=== PATIENT | female | born 1985 | race Caucasian/White ===

== ENCOUNTER → 2017-07-03 17:40 | Outpatient (CLI) | payer OTHER, SELFPAY ==
[2017-07-03 20:51] LABS: Chlamydia Trachomatis by PCR Negative (Negative); Neisserai gonorrhoeae by PCR Negative (Negative); Probe Check PASS; Sample Adequacy Control PASS; Specimen Processing Control PASS
== END ==
PROVIDERS: Family Provider Family Medicine; PCP Family Medicine; Visit Provider Obstetrics & Gynecology
DX: Z34.90 Encounter for supervision of normal pregnancy, unspecified, unspecified trimester (principal)
CPT/HCPCS: 87086; 87491; 87591

== ENCOUNTER → 2017-08-03 08:30 | Outpatient (CLI) | payer OTHER, SELFPAY ==
[2017-08-03 10:13] LABS: Absolute Lymphocyte Count 1.29 X10^3/ul (0.83-4.51); Absolute Neutrophil Count 4.7 X10^3/uL (2.0-7.7); Basophil# 0.03 X10^3/uL; Basophil% 0.5 % (0-1); Eosinophil# 0.16 X10^3/uL; Eosinophils% 2.4 % (0-5); Hematocrit 38.4 % (37-47); Hemoglobin 13.1 g/dl (12.0-15.0); Lymphocyte # 1.29 X10^3/ul (4.0); Lymphocyte % 19.7 % (19-41); Mean Corp Hgb Conc 34.1 g/gl (32-36); Mean Corpuscular Hgb 30.2 pg (27.0-32.0); Mean Corpuscular Volume 88.5 fL (81-99); Mean Platelet Vol. 12.5 fl (6.2-12.0); Monocyte# 0.34 X10^3/uL; Monocyte% 5.2 % (0-10); Neutrophil % 71.6 % (47-70); Platelet Count 95 K/mm3 (150-450); RBC Distribution Width CV 12.9 % (11.6-14.6); RBC Distribution Width SD 40.9 fl (35.1-43.9); Red Blood Count 4.34 M/mm3 (4.2-5.4); White Blood Count 6.6 K/mm3 (4.4-11.0)
[2017-08-03 10:17] LABS: POSITIVE COUNT NO; POSITIVE DIFFERENTIAL NO; POSITIVE MORPHOLOGY NO
[2017-08-03 10:46] LABS: Glucose Challenge Gest 1H 50g 80 mg/dL (70-140)
[2017-08-03 12:27] LABS: HIV - WCH Non-Reactive (Nonreactive); Rubella IgG 40.5 IU/mL
[2017-08-04 16:05] LABS: HEPATITIS B SURFACE AG Negative (Negative)
[2017-08-07 02:58] LABS: Rapid Plasmin Reagin (RPR) NONREACTIVE (NONREACTIVE)
== END ==
PROVIDERS: Family Provider Family Medicine; PCP Family Medicine; Visit Provider Obstetrics & Gynecology
DX: Z34.90 Encounter for supervision of normal pregnancy, unspecified, unspecified trimester (principal); Z36.82 Encounter for antenatal screening for nuchal translucency
CPT/HCPCS: 36415; 82950; 85025; 86592; 86703; 86762; 86850; 86900; 87340

== ENCOUNTER → 2017-08-04 12:48 | Outpatient (CLI) | payer OTHER, SELFPAY ==
[2017-08-04 13:28] LABS: Absolute Lymphocyte Count 2.08 X10^3/ul (0.83-4.51); Absolute Neutrophil Count 5.4 X10^3/uL (2.0-7.7); Basophil# 0.02 X10^3/uL; Basophil% 0.2 % (0-1); Eosinophil# 0.07 X10^3/uL; Eosinophils% 0.8 % (0-5); Hematocrit 36.5 % (37-47); Hemoglobin 12.6 g/dl (12.0-15.0); Lymphocyte # 2.08 X10^3/ul (4.0); Lymphocyte % 25.2 % (19-41); Mean Corp Hgb Conc 34.5 g/gl (32-36); Mean Corpuscular Hgb 30.5 pg (27.0-32.0); Mean Corpuscular Volume 88.4 fL (81-99); Mean Platelet Vol. 12.2 fl (6.2-12.0); Monocyte# 0.64 X10^3/uL; Monocyte% 7.7 % (0-10); Neutrophil # 5.43 X10^3/uL (2.7-7.7); Neutrophil % 65.7 % (47-70); Platelet Count 165 K/mm3 (150-450); RBC Distribution Width CV 12.9 % (11.6-14.6); RBC Distribution Width SD 40.5 fl (35.1-43.9); Red Blood Count 4.13 M/mm3 (4.2-5.4); White Blood Count 8.3 K/mm3 (4.4-11.0)
[2017-08-04 13:29] LABS: POSITIVE COUNT NO; POSITIVE DIFFERENTIAL NO; POSITIVE MORPHOLOGY NO
== END ==
PROVIDERS: Family Provider Family Medicine; PCP Family Medicine; Visit Provider Obstetrics & Gynecology
DX: O99.119 Other diseases of the blood and blood-forming organs and certain disorders involving the immune mechanism complicating pregnancy, unspecified trimester (principal); D69.6 Thrombocytopenia, unspecified; Z3A.00 Weeks of gestation of pregnancy not specified
CPT/HCPCS: 36415; 85025

== ENCOUNTER → 2017-08-24 09:57 | Outpatient (CLI) | payer OTHER, SELFPAY | PROVIDERS: Family Provider Family Medicine; PCP Family Medicine; Visit Provider Obstetrics & Gynecology Maternal & Fetal Medicine | DX: Z36.82 Encounter for antenatal screening for nuchal translucency (principal) | CPT/HCPCS: 36415 ==

== ENCOUNTER → 2017-09-11 15:50 | Outpatient (CLI) | payer OTHER, SELFPAY ==
--- NOTE | 2017-09-11 15:50 | US_ITS ---
STUDY: SECOND AND THIRD TRIMESTER OBSTETRICAL ULTRASOUND REASON FOR EXAM: Female, 32 years old. , assessment LMP: April 30, 2018 TECHNIQUE: Transabdominal imaging of the pelvis was performed using real-time ultrasound. PRIOR ULTRASOUND: None. FINDINGS: There is a single intrauterine fetus. The fetus is in a breech presentation. There is demonstrated cardiac activity with a heart rate of 143 bpm. There is a normal amniotic fluid volume. The placenta is anterior in location and is not low lying. There are Grade 0 placental changes. The cervix measures 3.9 cm in length. The bilateral adnexal regions show no significant abnormalities. BIOMETRY: BPD: 4.45 cm: 19 weeks, 4 days HC: 16.07 cm: 19 weeks, 0 days AC: 13.75 cm: 19 weeks, 2 days FL: 2.92 cm: 19 weeks, 0 days CI: 81% FL/BPD: 66% FL/HC: FL/AC: 21% HC/AC: 1.17 age by current US: 19 weeks, 2 days. LINA by current US: February 03, 2018. Estimated weight: 273 grams, +/- 40 grams, 42 %. age by prior US: weeks, days. LINA by prior US: . Age by LMP: 19 weeks, 1 days. LINA by LMP: February 04, 2018. ANATOMY: Gender: Male Cranium: Normal lateral ventricles. Normal choroid plexus. Normal cerebellum. Normal cisterna magna. Normal face, nose and lips. Chest: Normal 4-chamber heart. Abdomen/Pelvis: Normal diaphragm. Normal stomach. Normal abdominal wall. Normal cord insertion. Normal 3 vessel cord. Normal kidneys. Normal bladder. Spine: Normal cervical spine. Normal thoracic spine. Normal lumbar spine. Extremities: Normal bilateral upper extremities. Normal bilateral lower extremities. US/OB Anatomy Scan IMPRESSION: There is a viable intrauterine with estimated gestational age of 19 weeks 2 days by the current ultrasound. No anomalies are seen. The fetus is currently breech. Electronically Signed: Ban Smith MD at 2:19 EDT Tel Direct: [phone], Service support ,
== END ==
PROVIDERS: Family Provider Family Medicine; PCP Family Medicine; Visit Provider Nurse Practitioner Women's Health
DX: Z34.90 Encounter for supervision of normal pregnancy, unspecified, unspecified trimester (principal)
CPT/HCPCS: 76805

== ENCOUNTER → 2017-11-13 07:52 | Outpatient (CLI) | payer OTHER, SELFPAY ==
[2017-11-13 09:23] LABS: Absolute Lymphocyte Count 1.39 X10^3/ul (0.83-4.51); Absolute Neutrophil Count 5.9 X10^3/uL (2.0-7.7); Basophil# 0.01 X10^3/uL; Basophil% 0.1 % (0-1); Eosinophil# 0.04 X10^3/uL; Eosinophils% 0.5 % (0-5); Hematocrit 35.6 % (37-47); Lymphocyte # 1.39 X10^3/ul (4.0); Lymphocyte % 17.8 % (19-41); Mean Corp Hgb Conc 33.7 g/gl (32-36); Mean Corpuscular Hgb 30.7 pg (27.0-32.0); Mean Platelet Vol. 11.6 fl (6.2-12.0); Monocyte# 0.44 X10^3/uL; Monocyte% 5.6 % (0-10); Neutrophil # 5.91 X10^3/uL (2.7-7.7); Neutrophil % 75.6 % (47-70); Platelet Count 136 K/mm3 (150-450); RBC Distribution Width CV 13.2 % (11.6-14.6); RBC Distribution Width SD 43.9 fl (35.1-43.9); Red Blood Count 3.91 M/mm3 (4.2-5.4); White Blood Count 7.8 K/mm3 (4.4-11.0)
[2017-11-13 09:25] LABS: POSITIVE COUNT NO; POSITIVE DIFFERENTIAL NO; POSITIVE MORPHOLOGY NO
[2017-11-13 09:53] LABS: Glucose Challenge Gest 1H 50g 137 mg/dL (70-140)
== END ==
PROVIDERS: Family Provider Family Medicine; PCP Family Medicine; Visit Provider Obstetrics & Gynecology
DX: Z34.90 Encounter for supervision of normal pregnancy, unspecified, unspecified trimester (principal)
CPT/HCPCS: 36415; 82950; 85025; 86850; 86900

== ENCOUNTER → 2017-11-19 06:56 | Outpatient (CLI) | payer OTHER, SELFPAY ==
[2017-11-19 07:49] LABS: Glucose GTT-Gestation. Fasting 98 mg/dL (<105)
[2017-11-19 09:42] LABS: Glucose GTT-Gestational 1 Hr 161 mg/dL (<190)
[2017-11-19 09:52] LABS: Glucose GTT-Gestational 2 Hr 91 mg/dL (<165)
[2017-11-19 11:39] LABS: Glucose GTT-Gestational 3 Hr 65 L (<145)
== END ==
PROVIDERS: Family Provider Family Medicine; PCP Family Medicine; Visit Provider Obstetrics & Gynecology
DX: R73.02 Impaired glucose tolerance (oral) (principal)
CPT/HCPCS: 36415; 82951; 82952

== ENCOUNTER → 2017-12-23 15:42 | Outpatient (CLI) | payer OTHER, SELFPAY ==
[2017-12-23 17:26] LABS: Absolute Lymphocyte Count 1.84 X10^3/ul (0.83-4.51); Absolute Neutrophil Count 6.6 X10^3/uL (2.0-7.7); Basophil# 0.01 X10^3/uL; Basophil% 0.1 % (0-1); Eosinophil# 0.06 X10^3/uL; Eosinophils% 0.6 % (0-5); Hematocrit 35.6 % (37-47); Hemoglobin 12.2 g/dl (12.0-15.0); Lymphocyte # 1.84 X10^3/ul (4.0); Lymphocyte % 19.9 % (19-41); Mean Corp Hgb Conc 34.3 g/gl (32-36); Mean Corpuscular Hgb 31.2 pg (27.0-32.0); Mean Platelet Vol. 12.3 fl (6.2-12.0); Monocyte# 0.72 X10^3/uL; Monocyte% 7.8 % (0-10); Neutrophil # 6.58 X10^3/uL (2.7-7.7); Neutrophil % 71.2 % (47-70); Platelet Count 157 K/mm3 (150-450); RBC Distribution Width CV 13.3 % (11.6-14.6); RBC Distribution Width SD 43.6 fl (35.1-43.9); Red Blood Count 3.91 M/mm3 (4.2-5.4); White Blood Count 9.3 K/mm3 (4.4-11.0)
[2017-12-23 17:51] LABS: Differential Comment SCANNED; Differential Indicated SCAN CRITERIA MET; POSITIVE COUNT NO; POSITIVE DIFFERENTIAL NO; POSITIVE MORPHOLOGY YES
== END ==
PROVIDERS: Family Provider Family Medicine; PCP Family Medicine; Visit Provider Nurse Practitioner Women's Health
DX: O99.113 Other diseases of the blood and blood-forming organs and certain disorders involving the immune mechanism complicating pregnancy, third trimester (principal); D69.6 Thrombocytopenia, unspecified; Z3A.00 Weeks of gestation of pregnancy not specified
CPT/HCPCS: 36415; 85025

== ENCOUNTER → 2018-01-07 16:59 | Outpatient (CLI) | payer OTHER, SELFPAY ==
[2018-01-07 18:36] LABS: Free T3 2.4 pg/mL (2.18-3.98); T4 Free Direct 0.92 ng/dL (0.76-1.46); Thyroid Stim Hormone (TSH) 1.44 uIU/mL (0.358-3.74)
[2018-01-07 20:22] LABS: Group B Strep DNA By PCR Negative (Negative); Internal Control PASS; Probe Check PASS; Specimen Processing Control PASS
== END ==
PROVIDERS: Family Provider Family Medicine; PCP Family Medicine; Visit Provider Obstetrics & Gynecology
DX: O99.113 Other diseases of the blood and blood-forming organs and certain disorders involving the immune mechanism complicating pregnancy, third trimester (principal); D69.6 Thrombocytopenia, unspecified; E01.0 Iodine-deficiency related diffuse (endemic) goiter; Z3A.00 Weeks of gestation of pregnancy not specified; Z34.83 Encounter for supervision of other normal pregnancy, third trimester
CPT/HCPCS: 36415; 84439; 84443; 84481; 87081; 87653

== ENCOUNTER → 2018-01-12 10:55 | Outpatient (CLI) | payer OTHER, SELFPAY | PROVIDERS: Family Provider Family Medicine; PCP Family Medicine; Visit Provider Obstetrics & Gynecology | DX: O26.849 Uterine size-date discrepancy, unspecified trimester (principal); Z3A.00 Weeks of gestation of pregnancy not specified | CPT/HCPCS: 76816 ==

== ENCOUNTER → 2018-01-19 07:56 | Outpatient (CLI) | payer OTHER, SELFPAY | PROVIDERS: Family Provider Family Medicine; PCP Family Medicine; Visit Provider Obstetrics & Gynecology | DX: O99.283 Endocrine, nutritional and metabolic diseases complicating pregnancy, third trimester (principal); E01.0 Iodine-deficiency related diffuse (endemic) goiter; O99.113 Other diseases of the blood and blood-forming organs and certain disorders involving the immune mechanism complicating pregnancy, third trimester; D69.6 Thrombocytopenia, unspecified; Z3A.00 Weeks of gestation of pregnancy not specified | CPT/HCPCS: 76536 ==

== ENCOUNTER 2018-01-30 00:24 | Inpatient (IN) | payer OTHER, SELFPAY ==
[2018-01-30 01:02] VITALS: BMI 38.7
[2018-01-30] MEDS: Lactated Ringers 1,000 ML 50 ML IV ×3 (01:10→07:11)
[2018-01-30 01:27] LABS: Hemoglobin 12.6 g/dl (12.0-15.0); Mean Corpuscular Hgb 31.7 pg (27.0-32.0); Mean Corpuscular Volume 90.7 fL (81-99); Mean Platelet Vol. 12.3 fl (6.2-12.0); Platelet Count 124 K/mm3 (150-450); RBC Distribution Width CV 12.6 % (11.6-14.6); RBC Distribution Width SD 41.2 fl (35.1-43.9); Red Blood Count 3.97 M/mm3 (4.2-5.4); White Blood Count 10.8 K/mm3 (4.4-11.0)
[2018-01-30 01:31] LABS: Scan Indicated on CBC? Y/N NO
[2018-01-30] MEDS: fentaNYL-bupivacaine (epidural) 100 ML BAG EPIDURAL ×2 (02:55→07:33)
[2018-01-30] MEDS: Ondansetron 4 MG/2 ML Vial IV (03:12)
--- NOTE | 2018-01-30 04:47 | PCM.HP.OB ---
- Problem List (1) Active labor at term Status: Acute (2) Thyromegaly Status: Acute Comment: noticed at 36 week visit, ordered labs and imaging (3) IUD contraception Status: Acute (4) Benign gestational thrombocytopenia in third trimester Status: Acute Comment: cbc monthly, give steroid pack if under 100: 12/23/17 157 (5) Abnormal GTT (glucose tolerance test) Status: Acute Comment: 3 hour gtt normal (6) screening encounter Status: Acute Comment: nt normal (7) Rh negative status during Status: Acute Qualifiers: Comment: rhogam PRN and at 28 weeks (8) Supervision of normal Status: Acute Qualifiers: Comment: PRR LINA 02/04/18 boy PC Abdirashid Marco (9) Depression Status: Acute Qualifiers: Comment: celexa History Date of Admission: 01/30/18 Final LINA: 02/04/18 Gestational age: 39 Weeks and 2 Days History of this : This is a 33 year-old, at 39 weeks gestational age presents IAL. she denies any vb or lof admits good fm co regular ctx. she has had an uncomplicated Medical History: Medical History (Last Reviewed 01/29/18 @ 15:26 by Nathalia Pisano) Abnormal Pap smear of cervix R87.619 Depression F32.9 Surgical History: Surgical History (Last Reviewed 01/29/18 @ 15:26 by Nathalia Pisano) H/O LEEP Z98.890 Allergies No Known Allergies Allergy (Verified 01/29/18 15:26) Home Medications: Home Medications vitamin,calcium,jiuirdyw-lzft-imdsf acid tablet 1 tab PO QDAY MDD one 07/03/17 sulfur-sod sulf-sod thios 400 mg-mthflate 500 mcg/0.4 gram oral powder 07/03/17 citalopram 20 mg tablet 20 mg PO DAILY 09/24/17 Smoking Status: Never smoker Alcohol: None Number of Fetus(es): 1 Heart Tracin moderate variability reactive no decels cat I tracing TOCO Analysis: q3 History Past Pregnancies: Past Pregnancies Pregancy History 2 Elective abortions Hx Para 1 Spontaneous abortions Hx # Term Pregnancies Ectopic pregnancies Hx # Pregnancies Multiple births # of living children Past Pregnancies Del. Date Name GA/Weeks Outcome Route Bth Weight Infant Gen Labor Lgth Anesthesia Del Locatn Provider FOB 02/17/16 Abdirashid 39 live - full term vacuum 8lbs 2 ounces Male epidural [facility] Clifford Delivery Date: 02/17/16 On 12/23/17 @ 15:29 Nathalia Pisano pushed 3 hours Labs: Mom's Problem List Problem Status Onset Code Active labor at term Acute Mom's Labs & Results 01/30/18 01/30/18 01:10 01:10 WBC 10.8 RBC 3.97 L Hgb 12.6 Hct 36.0 L MCV 90.7 MCH 31.7 MCHC 35.0 RDW 12.6 RDW Differential 41.2 Plt Count 124 L MPV 12.3 H Blood Type A NEGATIVE Antibody Screen NEGATIVE Course Did the patient receive Yes care? Labs Blood Type: A RH: NEGATIVE RPR/VDRL/Syphilis Nonreactive Rubella status Immune HbSAg Negative Date Done: 08/03/17 Chlamydia Negative Gonorrhea Negative HIV/AIDS Non-Reactive Group B Strep: Negative Current Obstetrical History Gestational Diabetes No Incompetent Cervix No Infertility No IUGR No Macrosomia No Hypertension/Pre-eclampsia No Placenta Previa/Abruption No PTL/PROM No Uterine anomaly No Oligohydramnios No Polyhydramnios No Multiple gestation No Past Medical History Asthma No Diabetes No Hypertension No Heart disease No Mitral valve prolapse No Neurologic/Seizure disorder/ No Migraines Kidney disease No Liver disease No Varicosities No Clotting disorders/Hx of DVT No Thyroid Dysfunction Yes: enlarged Other medical diseases No Psychiatric disorders Yes: depression Major trauma No Abnormal PAP smear Yes: LEEP procedure 2012 Sleep apnea No Mammogram in the last 2 years No Social History Marital Status: Alleged father Marco Sky Hx Smoking Yes Smoking Status Never smoker Expected Delivery Method: Spontaneous Vaginal Review of Systems Constitutional: Denies: Fever, Malaise Eyes: Denies: Blurred vision, Vision Change HEENT: Denies: Head Aches, Visual Changes Cardiovascular: Denies: Chest Pain, Palpitations Respiratory: Denies: Cough, Shortness of Breath, Wheezing Gastrointestinal: Denies: Abdominal Pain, Diarrhea, Nausea, Vomiting Genitourinary: Denies: Dysuria, Hematuria Musculoskeletal: Denies: Joint Pain, Muscle pain Skin: Denies: Lesions, Rash Neurological: Denies: Blurred vision, Focal weakness, Headaches Psychiatric: Denies: Anxiety, Depression Endocrine: Denies: Heat/ Cold Intolerance Hematologic/ Lymphatic: Denies: Easy Bruising, Easy Bleeding Physical Exam General: Alert, Cooperative, No apparent distress HEENT: Atraumatic, Normocephalic. Negative for: Thyromegaly, Lymphadenopathy Cardiovascular: Regular rate Lungs: Normal air movement Abdomen: Soft, Non Tender, Gravid Neurological: Deep Tendon Reflexes 2+/4 and Symmetrical, Neuro grossly intact. 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 Negative for: Vulvar lesions Estimated gestational size: Appropriate for gestational size Presentation: Cephalic Cervix Dilation (cm): 5 Station: -1 Effacement (%): 80 Assessment/Plan All Active Problems (Last Reviewed 01/29/18 @ 15:26 by Nathalia Pisano) Active labor at term (Acute) Thyromegaly (Acute) IUD contraception (Acute) Benign gestational thrombocytopenia in third trimester (Acute) Abnormal GTT (glucose tolerance test) (Acute) screening encounter (Acute) Rh negative status during (Acute) Supervision of normal (Acute) Depression (Acute) This is a 33 year-old, , at 39 weeks gestational age presents IAL Patient presents IAL, plan expectant management for , pitocin/AROM clear fluid. Pain management: epidural GBS negative Management of any complications: none I have reviewed the [facility] and made any clinically relevant updates.
--- NOTE | 2018-01-30 04:51 | HP.PCM_ITS ---
- Problem List (1) Active labor at term Status: Acute (2) Thyromegaly Status: Acute Comment: noticed at 36 week visit, ordered labs and imaging (3) IUD contraception Status: Acute (4) Benign gestational thrombocytopenia in third trimester Status: Acute Comment: cbc monthly, give steroid pack if under 100: 12/23/17 157 (5) Abnormal GTT (glucose tolerance test) Status: Acute Comment: 3 hour gtt normal (6) screening encounter Status: Acute Comment: nt normal (7) Rh negative status during Status: Acute Qualifiers: Comment: rhogam PRN and at 28 weeks (8) Supervision of normal Status: Acute Qualifiers: Comment: PRR LINA 02/04/18 boy PC Abdirashid Marco (9) Depression Status: Acute Qualifiers: Comment: celexa History Date of Admission: 01/30/18 Final LINA: 02/04/18 Gestational age: 39 Weeks and 2 Days History of this : This is a 33 year-old, at 39 weeks gestational age presents IAL. she denies any vb or lof admits good fm co regular ctx. she has had an uncomplicated Medical History: Medical History (Last Reviewed 01/29/18 @ 15:26 by Nathalia Pisano) Abnormal Pap smear of cervix R87.619 Depression F32.9 Surgical History: Surgical History (Last Reviewed 01/29/18 @ 15:26 by Nathalia Pisano) H/O LEEP Z98.890 Allergies No Known Allergies Allergy (Verified 01/29/18 15:26) Home Medications: Home Medications vitamin,calcium,fadeuwcb-mops-qpgyj acid tablet 1 tab PO QDAY MDD one 07/03/17 sulfur-sod sulf-sod thios 400 mg-mthflate 500 mcg/0.4 gram oral powder citalopram 20 mg tablet 20 mg PO DAILY 09/24/17 Smoking Status: Never smoker Alcohol: None Number of Fetus(es): 1 Heart Tracin moderate variability reactive no decels cat I tracing TOCO Analysis: q3 History Past Pregnancies: Past Pregnancies Pregancy History 2 Elective abortions Hx Para 1 Spontaneous abortions Hx # Term Pregnancies Ectopic pregnancies Hx # Pregnancies Multiple births # of living children Past Pregnancies Del. Date Name GA/Weeks Outcome Route Bth Weight Gen Labor Lgth Anesthesia Del Locatn Provider FOB 02/17/16 Abdirashid 39 live - full term vacuum 8lbs 2 ounces Male epidural [facility] Clifford Delivery Date: 02/17/16 On 12/23/17 @ 15:29 Nathalia Pisano pushed 3 hours Labs: Mom's Problem List Problem Status Onset Code Active labor at term Acute Mom's Labs & Results 01/30/18 01/30/18 01:10 01:10 WBC 10.8 RBC 3.97 L Hgb 12.6 Hct 36.0 L MCV 90.7 MCH 31.7 MCHC 35.0 RDW 12.6 RDW Differential 41.2 Plt Count 124 L MPV 12.3 H Blood Type A NEGATIVE Antibody Screen NEGATIVE Course Did the patient receive Yes care? Labs Blood Type: A RH: NEGATIVE RPR/VDRL/Syphilis Nonreactive Rubella status Immune HbSAg Negative Date Done: 08/03/17 Chlamydia Negative Gonorrhea Negative HIV/AIDS Non-Reactive Group B Strep: Negative Current Obstetrical History Gestational Diabetes No Incompetent Cervix No Infertility No IUGR No Macrosomia No Hypertension/Pre-eclampsia No Placenta Previa/Abruption No PTL/PROM No Uterine anomaly No Oligohydramnios No Polyhydramnios No Multiple gestation No Past Medical History Asthma No Diabetes No Hypertension No Heart disease No Mitral valve prolapse No Neurologic/Seizure disorder/ No Migraines Kidney disease No Liver disease No Varicosities No Clotting disorders/Hx of DVT No Thyroid Dysfunction Yes: enlarged Other medical diseases No Psychiatric disorders Yes: depression Major trauma No Abnormal PAP smear Yes: LEEP procedure 2012 Sleep apnea No Mammogram in the last 2 years No Social History Marital Status: Alleged father Marco Sky Hx Smoking Yes Smoking Status Never smoker Expected Infant Delivery Method: Spontaneous Vaginal Review of Systems Constitutional: Denies: Fever, Malaise Eyes: Denies: Blurred vision, Vision Change HEENT: Denies: Head Aches, Visual Changes Cardiovascular: Denies: Chest Pain, Palpitations Respiratory: Denies: Cough, Shortness of Breath, Wheezing Gastrointestinal: Denies: Abdominal Pain, Diarrhea, Nausea, Vomiting Genitourinary: Denies: Dysuria, Hematuria Musculoskeletal: Denies: Joint Pain, Muscle pain Skin: Denies: Lesions, Rash Neurological: Denies: Blurred vision, Focal weakness, Headaches Psychiatric: Denies: Anxiety, Depression Endocrine: Denies: Heat/ Cold Intolerance Hematologic/ Lymphatic: Denies: Easy Bruising, Easy Bleeding Physical Exam General: Alert, Cooperative, No apparent distress HEENT: Atraumatic, Normocephalic. Negative for: Thyromegaly, Lymphadenopathy Cardiovascular: Regular rate Lungs: Normal air movement Abdomen: Soft, Non Tender, Gravid Neurological: Deep Tendon Reflexes 2+/4 and Symmetrical, Neuro grossly intact. 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 Negative for: Vulvar lesions Estimated gestational size: Appropriate for gestational size Presentation: Cephalic Cervix Dilation (cm): 5 Station: -1 Effacement (%): 80 Assessment/Plan All Active Problems (Last Reviewed 01/29/18 @ 15:26 by Nathalia Pisano) Active labor at term (Acute) Thyromegaly (Acute) IUD contraception (Acute) Benign gestational thrombocytopenia in third trimester (Acute) Abnormal GTT (glucose tolerance test) (Acute) screening encounter (Acute) Rh negative status during (Acute) Supervision of normal (Acute) Depression (Acute) This is a 33 year-old, , at 39 weeks gestational age presents IAL Patient presents IAL, plan expectant management for , pitocin/AROM clear fluid. Pain management: epidural GBS negative Management of any complications: none I have reviewed the [facility] and made any clinically relevant updates.
[2018-01-30] MEDS: Acetaminophen 325 MG Tablet PO (06:40)
--- NOTE | 2018-01-30 08:15 | PCM.PN.BLA ---
Progress Note fht 130s moderate variability reactive no decels. cat I tracing. reassuring. pushing now doing well.
[2018-01-30] MEDS: Oxytocin 30 units/NS 500 ml 30 UNITS/500 ML IV.SOLN 334 UNITS IV (09:02)
--- NOTE | 2018-01-30 09:13 | PCM.OB.VAG ---
- Problem List (1) Active labor at term Status: Acute (2) Thyromegaly Status: Acute Comment: noticed at 36 week visit, ordered labs and imaging (3) IUD contraception Status: Acute (4) Benign gestational thrombocytopenia in third trimester Status: Acute Comment: cbc monthly, give steroid pack if under 100: 12/23/17 157 (5) Abnormal GTT (glucose tolerance test) Status: Acute Comment: 3 hour gtt normal (6) screening encounter Status: Acute Comment: nt normal (7) Rh negative status during Status: Acute Qualifiers: Comment: rhogam PRN and at 28 weeks (8) Supervision of normal Status: Acute Qualifiers: Comment: PRR LINA 02/04/18 boy PC Abdirashid Marco (9) Depression Status: Acute Qualifiers: Comment: celexa Vaginal Delivery Maternal Presentation: Active Labor 33-year-old at 39 weeks 2 days presents in active labor. Amniotic Membrane Rupture Type: Artificial Amniotic Fluid Description: Clear Final LINA: 02/04/18 Gestational age: 39 Weeks and 2 Days Date of Procedure: 01/30/18 Pre-Operative Diagnosis: In active labor Post-Operative Diagnosis: Same Surgery/ Procedure Performed: Spontaneous Vaginal Delivery Type of Anesthesia: Epidural Description of Procedure: Patient began pushing and delivered the head in the TAMMI presentation. The head was delivered atraumatically. The anterior and posterior shoulders delivered without complication followed by the rest of the infant and the was placed on the maternal abdomen. Delayed cord clamping was employed for approximately 60 seconds. Cord was clamped and cut and gentle traction was applied to the cord and the placenta delivered spontaneously immediately following it was noted to be intact with three-vessel cord. The perineum and vagina were inspected and noted to have a second-degree perineal laceration that was repaired in the usual fashion with 3-0 Vicryl Rapide. EBL was 500 cc. Patient and infant tolerated delivery well. Presentation: TAMMI Placental Delivery Description: Spontaneous Placenta Disposition: [facility] Cord Vessel Description: 3 Vessels
[2018-01-30] MEDS: Oxytocin 30 units/NS 500 ml 30 UNITS/500 ML IV.SOLN 167 UNITS IV (09:32)
[2018-01-30] MEDS: Acetaminophen 500 MG Tablet 1000 MG PO (11:25)
[2018-01-30 11:45] VITALS: BP 121/82; PULSE 90; RESP 17; TEMP 36
[2018-01-30] MEDS: Prenatal Vits Tablet 1 TABLET PO (15:15)
[2018-01-30 15:16] VITALS: BP 125/73; PULSE 78; RESP 14; TEMP 36.4
[2018-01-30] MEDS: Ketorolac 10 MG Tablet PO (15:24)
[2018-01-30 19:40] VITALS: BP 140/78; PULSE 78; RESP 18; TEMP 36.6; O2SAT 98
[2018-01-30] MEDS: Citalopram 20 MG Tablet 30 MG PO (21:54)
[2018-01-30 23:50] VITALS: BP 136/80; PULSE 88; RESP 18; TEMP 36.7
[2018-01-31] MEDS: Ketorolac 10 MG Tablet PO ×3 (03:41→22:24)
[2018-01-31 03:43] VITALS: BP 139/73; PULSE 80; RESP 16; TEMP 36.6
[2018-01-31] MEDS: Senna/Docusate Sodium 1 Tablet PO (04:07)
[2018-01-31 08:15] VITALS: BP 143/71; PULSE 92; RESP 18; TEMP 36.8; O2SAT 96
[2018-01-31] MEDS: Acetaminophen 500 MG Tablet 1000 MG PO (08:38)
[2018-01-31] MEDS: Prenatal Vits Tablet 1 TABLET PO (13:10)
[2018-01-31 14:57] VITALS: BP 140/80; PULSE 93; RESP 17; TEMP 36.3; O2SAT 96
[2018-01-31 20:05] VITALS: BP 142/66; PULSE 86; RESP 16; TEMP 36.2
[2018-01-31] MEDS: Citalopram 20 MG Tablet 30 MG PO (22:24)
--- NOTE | 2018-02-01 01:44 | PCM.PN.OB ---
Patient Problems: Active and Suspected Problems (Last Reviewed 01/29/18 @ 15:26 by Nathalia Pisano) Active labor at term (Acute) Subjective: late entry- patient seen 01/31/18 at 9 am doing well no complaints pain controlled no CP SOB N V ambulating well tolerating po lochia moderate, having nipple pains with some blisters - Physical Exam General: Alert HEENT: Atraumatic Abdomen: Soft, Non Tender Vital Signs Temp Pulse Resp BP Pulse Ox 97.1 F L 86 16 142/66 H 96 01/31/18 20:05 01/31/18 20:05 01/31/18 20:05 01/31/18 20:05 01/31/18 14:57 Oxygen Delivery Method Room Air Weight: 262 lb 5.601 oz Body Mass Index (BMI) 38.7 Intake and Output for Last 24 Hours 01/30/18 01/31/18 02/01/18 23:59 23:59 23:59 Intake Total 2100 / 2100 Output Total 1700 / 1700 Balance 400 / 400 Medical Necessity - Tobacco Use Smoking Status: Never smoker Assessment/Plan All Active Problems (Last Reviewed 01/29/18 @ 15:26 by Nathalia Pisano) Active labor at term (Acute) Thyromegaly (Acute) IUD contraception (Acute) Benign gestational thrombocytopenia in third trimester (Acute) Abnormal GTT (glucose tolerance test) (Acute) screening encounter (Acute) Rh negative status during (Acute) Supervision of normal (Acute) Depression (Acute) s/p PPD # 1 1. routine post delivery care 2. breast feeding- support given 3. rh negative 4. rubella immune
[2018-02-01 03:00] VITALS: BP 131/86; PULSE 91; RESP 16; TEMP 37.1
[2018-02-01 07:54] VITALS: BP 129/79; PULSE 87; RESP 20; TEMP 36.5
[2018-02-01] MEDS: Ketorolac 10 MG Tablet PO (08:01)
[2018-02-01] MEDS: Senna/Docusate Sodium 1 Tablet PO (08:01)
[2018-02-01] MEDS: Prenatal Vits Tablet 1 TABLET PO (08:01)
--- NOTE | 2018-02-01 11:00 | CASEMGMT ---
Social Work Brief Assessment completed. Refer documentation below for further details. Date of Referral/Notification: 01/31/2018 Time of Referral: 1401 Referred By: Dr. Yashira Roldan Reason for Referral: maternal history of depression Date of Intervention: 02/01/2018 Time of Intervention: 1100 Informant: Medical record and patient/mother of baby (MOB) History: IGOR is 33 year old female, G2, P1 to 2 after delivering Azeem Kin on 01-30-18. MOB is to Marco Sky. MOB denies any abuse or safety concerns in the home. MOB reports older child is Abdirashid Sky, born 02-17-16. 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 MOB reports to have babysitting in place when MOB returns to work and plans to have Abdirashid remain in care with chute builder, to keep up a routine during MOBs maternity leave. MOB reports long history of depression, and after of Abdirashid experienced both depression and anxiety, which MOB reports started even while in the hospital. MOB reports was not direct in communicating with others initially as to how MOB was feeling. MOB denies that had any thoughts of suicide during that time or during this . MOB reports to have too much to live for (as looking at and smiling at the baby). MOB reports tried to be proactive during this , as did not want to be in the same place as was after Abdirashid. In trying to be proactive, MOB did start with counseling at [facility], seeing a therapist named Ban. Assessment: MOB reports to have needed supplies for baby and that father of baby will be off work for a week to help. MOB reports to have a good support system in the area. MOB able to identify the importance of self-care and in relation to maternal mental health needs. MOB reports guided imagery is a technique that has worked on with therapist, for coping when feeling down or stressed out. MOB report to know that can get back in to see Ban as another alternative if depressive and anxiety symptoms arise. MOB reports to feel more positive and overall better as compared to at this time after Abdirashid was born. Talked with MOB about possibly getting into see Ban in about a month or so, just for a touch base and check in on how things are going. MOB reports this may be a good idea and will likely make self an appointment. Talked with MOB about support group for mothers who have depression and anxiety, as well as getting fresh air and movement each day. Supportive encouragement and reflection offered to MOB. MOB voiced thanks for being able to talk things through and normalizing/validation MOBs experiences. MOB held baby throughout social work visit, gentle, attentive, and appropriate. No concerns voiced by staff about mother/child interactions either. Plan: MOB and baby to home today. depression packet given including some local and online resources for support of maternal mental health. No further needs requested or indicated. -SANJEEV Terrell, PARTS FABRICATOR
--- NOTE | 2018-02-01 12:07 | PCM.DCVAG ---
Discharge Diet: No Restrictions Discharge Activity: Return to Normal Activity, May not drive while taking narcotic pain medications., May Shower May resume sexual activity in: 4-6 weeks Call your doctor if your incision/area has: Continuous Slow Oozing, Sudden Increased Bleeding, Increased Pain/ Swelling, Increased Redness, Foul Smelling Discharge Instructions: Care After Circumcision Additional Instructions: If you experience any of the following, contact your healthcare provider. Bleeding that soaks a pad every hour for 2 hours Fever 100.4 or higher Unrelieved incision or abdominal pain Swelling, redness, discharge or bleeding from your incision or episiotomy site Your incision begins to separate Problems urinating (including inability to urinate or burning while urinating). Visual changes Severe headache Flu-like symptoms Pain or redness in one of both of your breasts Pain, warmth, tenderness or swelling in your legs, especially the calf area Frequent nausea and vomiting Symptoms of depression or anxiety If you experience any of the following, call 911 or go to the nearest Emergency Room. Chest pain Problems breathing Seizure activity Partial or complete paralysis of a body part, slurred speech, weakness or drooping of the face, or a sudden inability to walk or hold your balance Allergies/Adverse Reactions: Allergies No Known Allergies Allergy (Verified 01/29/18 15:26) Medications to take at Discharge vitamin,calcium,flcgsxgl-dmuh-vtfsk acid tablet 1 tab PO QDAY MDD one 07/03/17 sulfur-sod sulf-sod thios 400 mg-mthflate 500 mcg/0.4 gram oral powder 07/03/17 citalopram 20 mg tablet 30 mg PO DAILY 09/24/17 Naproxen [Naprosyn] 250 - 500 mg PO Q8H PRN PRN #30 tab 02/01/18 The following prescriptions were given: Naproxen [Naprosyn] 250 - 500 mg PO Q8H PRN PRN #30 tab PRN Reason: MILD PAIN Please Follow Up With: Mariama Patel MD - [phone] When: Call to make an appointment with your doctor in 6 weeks. If you had elevated Blood pressure or 4th degree laceration you will need to be seen in 2 weeks. Primary Care Physician: Federico Mcnamara MD [Primary Care Provider] - Test Results: Test results from this visit will be discussed in further detail at your follow-up appointment, if applicable.
--- NOTE | 2018-02-01 12:08 | PCM.PN.OB ---
Patient Problems: Active and Suspected Problems (Last Reviewed 01/29/18 @ 15:26 by Nathalia Pisano) Active labor at term (Acute) Subjective: doing well no complaints pain controlled no CP SOB N V ambulating well tolerating po lochia moderate, difficulties - Physical Exam General: Alert, Oriented x3 Vital Signs Temp Pulse Resp BP Pulse Ox 97.7 F L 87 20 H 129/79 H 96 02/01/18 07:54 02/01/18 07:54 02/01/18 07:54 02/01/18 07:54 01/31/18 14:57 Oxygen Delivery Method Room Air Weight: 262 lb 5.601 oz Body Mass Index (BMI) 38.7 Intake and Output for Last 24 Hours 01/30/18 01/31/18 02/01/18 23:59 23:59 23:59 Intake Total 2100 / 2100 Output Total 1700 / 1700 Balance 400 / 400 Medical Necessity - Tobacco Use Smoking Status: Never smoker Assessment/Plan All Active Problems (Last Reviewed 01/29/18 @ 15:26 by Nathalia Pisano) Active labor at term (Acute) Thyromegaly (Acute) IUD contraception (Acute) Benign gestational thrombocytopenia in third trimester (Acute) Abnormal GTT (glucose tolerance test) (Acute) screening encounter (Acute) Rh negative status during (Acute) Supervision of normal (Acute) Depression (Acute) s/p PPD # 2 1. routine post delivery care 2. breast feeding- support given 3. rh negative 4. rubella immune dc home
== END 2018-02-01 12:30 | disposition home or self-care (01) | DRG 775 ==
PROVIDERS: Admitting Provider Obstetrics & Gynecology; Family Provider Family Medicine; PCP Family Medicine; Visit Provider Obstetrics & Gynecology
DX: O70.1 Second degree perineal laceration during delivery (principal); Z37.0 Single live birth; O36.0120 Maternal care for anti-D [Rh] antibodies, second trimester, not applicable or unspecified; O99.12 Other diseases of the blood and blood-forming organs and certain disorders involving the immune mechanism complicating childbirth; D69.6 Thrombocytopenia, unspecified; O99.284 Endocrine, nutritional and metabolic diseases complicating childbirth; E01.0 Iodine-deficiency related diffuse (endemic) goiter; O99.344 Other mental disorders complicating childbirth; F32.9 Major depressive disorder, single episode, unspecified; Z3A.39 39 weeks gestation of pregnancy
CPT/HCPCS: 59025; 59050; 85027; 85461; 86850; 86900; 90384; 99218; J7120; G0378; J2405; J2790

== ENCOUNTER → 2018-07-07 07:02 | Outpatient (CLI) | payer OTHER, SELFPAY ==
[2018-07-07 10:36] LABS: Absolute Lymphocyte Count 1.93 X10^3/ul (0.83-4.51); Absolute Neutrophil Count 3.3 X10^3/uL (2.0-7.7); Basophil# 0.03 X10^3/uL; Basophil% 0.5 % (0-1); Eosinophil# 0.28 X10^3/uL; Eosinophils% 4.6 % (0-5); Hematocrit 41.1 % (37-47); Hemoglobin 13.9 g/dl (12.0-15.0); Lymphocyte # 1.93 X10^3/ul (4.0); Lymphocyte % 31.5 % (19-41); Mean Corp Hgb Conc 33.8 g/gl (32-36); Mean Corpuscular Hgb 29.8 pg (27.0-32.0); Mean Corpuscular Volume 88.2 fL (81-99); Mean Platelet Vol. 12.4 fl (6.2-12.0); Monocyte# 0.54 X10^3/uL; Monocyte% 8.8 % (0-10); Neutrophil # 3.32 X10^3/uL (2.7-7.7); Neutrophil % 54.1 % (47-70); POSITIVE COUNT NO; POSITIVE DIFFERENTIAL NO; POSITIVE MORPHOLOGY NO; Platelet Count 168 K/mm3 (150-450); RBC Distribution Width CV 12.5 % (11.6-14.6); RBC Distribution Width SD 39.8 fl (35.1-43.9); Red Blood Count 4.66 M/mm3 (4.2-5.4); White Blood Count 6.1 K/mm3 (4.4-11.0)
[2018-07-07 10:55] LABS: Anion Gap 8 (5-15); BUN 16 mg/dL (7-18); BUN/Creat Ratio 21.6 RATIO (10-20); Calcium,Total 8.6 mg/dL (8.5-10.1); Chloride 109 mmol/L (98-107); Creatinine, Serum 0.74 mg/dL (0.55-1.02); EST Glomerular Filtration Rate 96 mL/min (>60); Est Glom Filt Rate - Afr Amer 116 mL/min (>60); Glucose 80 mg/dL (74-106); Potassium 3.9 mmol/L (3.5-5.1); Sodium Level 142 mmol/L (136-145); Thyroid Stim Hormone (TSH) 1.32 uIU/mL (0.358-3.74)
== END ==
PROVIDERS: Family Provider Family Medicine; PCP Family Medicine; Referring Provider Family Medicine; Visit Provider Family Medicine
DX: R20.2 Paresthesia of skin (principal)
CPT/HCPCS: 36415; 80048; 82306; 84443; 85025

== ENCOUNTER → 2018-07-21 11:04 | Outpatient (CLI) | payer OTHER, SELFPAY ==
--- NOTE | 2018-07-21 11:14 | MRI_ITS ---
STUDY: MRI BRAIN WITH AND WITHOUT CONTRAST REASON FOR EXAM: Female, 33 years old. Demyelinating disease, migraines TECHNIQUE: Standardized multiplanar fat and water weighted pulse sequences were obtained. Gadavist 10 IV was administered for the contrast portion of the examination. COMPARISON: None. FINDINGS: Normal size of the ventricles and extra-axial spaces for the patient's age. Normal white matter tracts of the supratentorial brain. Normal bilateral basal ganglia. Normal thalami. There is no extra-axial fluid accumulation. Normal flow voids within the major intracranial circulation suggesting patency by spin echo criteria. Normal venous enhancement. There is no enhancing intra-axial or extra-axial abnormality. Normal sella turcica, pituitary gland, infundibular stalk, optic chiasm and hypothalamus. Normal tectal plate and pineal gland. Normal midbrain, lorena and medulla. Normal cerebellum. Normal basal cisterns. Normal bilateral temporal bones. Normal bilateral internal auditory canals. No demonstrated orbital abnormality, within the constraints of a routine brain study. Normal visualized paranasal sinuses. Normal calvarium and skull base. Normal visualized soft tissue structures. Normal visualized upper cervical spine. MRI/Brain W/WO Contrast IMPRESSION: No demyelinating lesions are seen. No evidence of infarct, hemorrhage, mass, or abnormal enhancement. Electronically Signed: Lawson Kirk MD at 12:43 EST Tel , Service support ,
== END ==
PROVIDERS: Family Provider Family Medicine; PCP Family Medicine; Referring Provider Family Medicine; Visit Provider Family Medicine
DX: R20.2 Paresthesia of skin (principal)
CPT/HCPCS: 70553; A9585

== ENCOUNTER → 2019-11-14 09:48 | Outpatient (CLI) | payer OTHER, SELFPAY ==
[2019-04-23 13:31] VITALS: BMI 37.7
[2019-11-14 12:23] LABS: Absolute Lymphocyte Count 2.37 X10^3/uL (0.83-4.51); Absolute Neutrophil Count 4.1 X10^3/uL (2.0-7.7); Basophil# 0.04 X10^3/uL; Basophil% 0.6 % (0-1); Eosinophils% 1.4 % (0-5); Hematocrit 43.5 % (37-47); Hemoglobin 14.4 g/dL (12.0-15.0); Lymphocyte # 2.37 X10^3/ul (4.0); Lymphocyte % 32.6 % (19-41); Mean Corp Hgb Conc 33.1 g/dL (32-36); Mean Corpuscular Hgb 30.1 pg (27.0-32.0); Mean Platelet Vol. 12.1 fl (6.2-12.0); Monocyte# 0.63 X10^3/uL; Monocyte% 8.7 % (0-10); NRBC Flagged by Analyzer 0 % (0-5); Neutrophil # 4.07 X10^3/uL (2.7-7.7); Neutrophil % 55.9 % (47-70); Platelet Count 205 K/mm3 (150-450); RBC Distribution Width SD 39.8 fl (35.1-43.9); Red Blood Count 4.78 M/mm3 (4.2-5.4); White Blood Count 7.3 K/mm3 (4.4-11.0)
[2019-11-14 12:49] LABS: ALB/GLOB Ratio 1.2 RATIO (0.9-2.4); AST(SGOT) 14 U/L (15-37); Alanine Aminotransfer ALT/SGPT 32 U/L (13-56); Albumin, Serum 4.3 g/dL (3.2-5.0); Alkaline Phosphatase 56 U/L (45-117); Anion Gap 8 (5-15); BUN 13 mg/dL (7-18); BUN/Creat Ratio 17.9 RATIO (10-20); Chloride 103 mmol/L (98-107); Cholesterol 177 mg/dL (200); Creatinine, Serum 0.73 mg/dL (0.55-1.02); EST Glomerular Filtration Rate 97 mL/min (>60); Est Glom Filt Rate - Afr Amer 118 mL/min (>60); Globulin 3.5 g/dL (2.2-4.2); Glucose 91 mg/dL (74-106); High Density Lipoprotein 38 mg/dL; Potassium 3.8 mmol/L (3.5-5.1); Protein, Total 7.8 g/dL (6.4-8.2); Sodium Level 139 mmol/L (136-145); T4 Free Direct 1.01 ng/dL (0.76-1.46); Thyroid Stim Hormone (TSH) 1.45 uIU/mL (0.358-3.74); Triglycerides 134 mg/dL; Very Low Density Lipoprotein 27 mg/dL (5-40)
[2019-11-15 16:36] LABS: Anti-Thyroglobulin AB < 1.0 IU/mL (0.0-0.9); Thyroglobulin, Serum Qt. 12.8 ng/mL (1.5-38.5); Thyroid Peroxidase AB < 9 IU/mL (0-34)
== END ==
PROVIDERS: PCP Family Medicine; Referring Provider Family Medicine; Visit Provider Family Medicine
DX: E01.0 Iodine-deficiency related diffuse (endemic) goiter (principal); E66.9 Obesity, unspecified
CPT/HCPCS: 36415; 80053; 80061; 84432; 84439; 84443; 85025; 86376; 86800

== ENCOUNTER → 2019-12-01 16:18 | Outpatient (CLI) | payer OTHER, SELFPAY ==
[2019-04-23 13:31] VITALS: BMI 37.7
--- NOTE | 2019-12-01 16:23 | RAD_ITS ---
STUDY: X-RAY - SOFT TISSUE NECK REASON FOR EXAM: Female, 34 years old. Thyroid goiter TECHNIQUE: 2 view(s) of the neck were obtained. COMPARISON: None. FINDINGS: Normal visualized nasopharynx, oropharynx, hypopharynx. Normal epiglottis. Normal visualized subglottic tracheal air column. There are no radiodense foreign bodies. The visualized soft tissues are unremarkable. RAD/Neck for Soft Tissue IMPRESSION: Normal x-ray soft tissue neck. Electronically Signed: Homer Pepe, at 17:22 EDT Tel , Service support ,
== END ==
PROVIDERS: PCP Family Medicine; Referring Provider Internal Medicine Pulmonary Disease; Visit Provider Internal Medicine Pulmonary Disease
DX: E04.9 Nontoxic goiter, unspecified (principal)
CPT/HCPCS: 70360

== ENCOUNTER → 2019-12-13 09:24 | Outpatient (CLI) | payer OTHER, SELFPAY ==
[2019-04-23 13:31] VITALS: BMI 37.7
--- NOTE | 2019-12-13 09:28 | US_ITS ---
STUDY: THYROID ULTRASOUND REASON FOR EXAM: Female, 34 years old. THYROMEGALY TECHNIQUE: Ultrasound evaluation of the thyroid was performed with real-time and static chiu-scale imaging. COMPARISON: 01/19/2018 FINDINGS: RIGHT LOBE: The right lobe of the thyroid gland measures 6.4 x 2.6 x 2.1 cm. There is a homogeneous echotexture. There are no demonstrated solid, cystic or complex lesions. LEFT LOBE: The left lobe of the thyroid gland measures 5.6 x 2.5 x 1.6 cm. There is a homogeneous echotexture. There are no demonstrated solid, cystic or complex lesions. ISTHMUS: The isthmus measures 6 mm. The regional lymph nodes are normal. US/Thyroid IMPRESSION: Enlarged homogeneous thyroid without discrete nodule or hyperemia. Electronically Signed: Jame Bal MD at 10:07 EDT , Service support ,
== END ==
PROVIDERS: PCP Family Medicine; Referring Provider Family Medicine; Visit Provider Family Medicine
DX: E01.0 Iodine-deficiency related diffuse (endemic) goiter (principal)
CPT/HCPCS: 76536

== ENCOUNTER → 2019-12-20 13:33 | Outpatient (CLI) | payer OTHER, SELFPAY ==
[2019-04-23 13:31] VITALS: BMI 37.7
== END ==
PROVIDERS: PCP Family Medicine; Visit Provider Family Medicine Hospice and Palliative Medicine
DX: Z11.59 Encounter for screening for other viral diseases (principal)
CPT/HCPCS: 87635; 94799; C9803; U0003

== ENCOUNTER → 2020-04-02 15:58 | Outpatient (CLI) | payer OTHER, SELFPAY ==
[2019-04-23 13:31] VITALS: BMI 37.7
--- NOTE | 2020-04-02 16:00 | BI_ITS ---
MAMMOGRAPHY - BILATERAL SCREENING REASON FOR EXAM: Female, 35 years old. Routine annual screening examination. PERTINENT HISTORY: Grandmother with breast cancer. Six-month history of a right breast lump. TECHNIQUE: Digital bilateral breast lora (3D mammographic acquisition) in the CC and MLO projections. 2-D mediolateral oblique (MLO) and craniocaudad (CC) views of both breasts were obtained. CAD: Full Field Digital Mammography with Computer Added Detection was performed. COMPARISON: Comparison is made with prior study dated 04/29/2017. FINDINGS: Breast Composition: The breasts are heterogeneously dense, which may obscure small masses. There are no dominant masses or suspicious calcifications. Stable benign-appearing bilateral axillary lymph nodes. No other significant abnormalities are identified. There has been no significant change since the prior study. BI/SCREEN MAMM (CAD) W/LOAR BILAT IMPRESSION: Stable bilateral screening mammogram. Yearly follow-up mammogram recommended. (A) ASSESSMENT CATEGORY: BIRADS Category 2: Benign. A letter regarding these results will be sent to the patient by the facility within 30 days. Approximately 10% of breast cancers are not detected by mammography. A normal mammogram should not delay biopsy of a clinically suspicious abnormality. [id number] Electronically Signed: Jamaal Medina, at 8:02 EST , Service support ,
== END ==
PROVIDERS: PCP Family Medicine; Referring Provider Family Medicine; Visit Provider Family Medicine
DX: Z12.31 Encounter for screening mammogram for malignant neoplasm of breast (principal)
CPT/HCPCS: 77063; 77067

== ENCOUNTER → 2020-12-24 17:07 | Outpatient (CLI) | payer OTHER, SELFPAY ==
[2020-12-24 15:22] VITALS: BMI 37.7
[2020-12-27 16:43] LABS: HPV APTIMA, High Risk Negative (Negative)
== END ==
PROVIDERS: PCP Family Medicine; Referring Provider Obstetrics & Gynecology; Visit Provider Obstetrics & Gynecology
DX: Z12.4 Encounter for screening for malignant neoplasm of cervix (principal)
CPT/HCPCS: 87624; 88175; G0145

== ENCOUNTER → 2020-12-28 07:59 | Outpatient (CLI) | payer OTHER, SELFPAY ==
[2020-12-24 15:22] VITALS: BMI 37.7
[2020-12-28 09:06] LABS: NATERA MAILED SPECIMEN
[2020-12-28 10:37] LABS: Vitamin D,25 Hydroxy 40.6 ng/mL
[2020-12-28 10:44] LABS: Cholesterol 172 mg/dL (200); Glucose 112 mg/dL (74-106); High Density Lipoprotein 36 mg/dL; Triglycerides 97 mg/dL; Very Low Density Lipoprotein 19 mg/dL (5-40)
== END ==
PROVIDERS: PCP Family Medicine; Referring Provider Obstetrics & Gynecology; Visit Provider Obstetrics & Gynecology
DX: Z01.411 Encounter for gynecological examination (general) (routine) with abnormal findings (principal)
CPT/HCPCS: 36415; 80061; 82306; 82947

== ENCOUNTER → 2021-01-25 15:14 | Outpatient (CLI) | payer OTHER, SELFPAY ==
[2021-01-25 17:54] LABS: ALB/GLOB Ratio 1.1 RATIO (0.9-2.4); AST(SGOT) 14 U/L (15-37); Alanine Aminotransfer ALT/SGPT 34 U/L (13-56); Albumin, Serum 3.8 g/dL (3.2-5.0); Alkaline Phosphatase 52 U/L (45-117); Anion Gap 5 (5-15); BUN 15 mg/dL (7-18); BUN/Creat Ratio 18.8 RATIO (10-20); Calcium,Total 8.9 mg/dL (8.5-10.1); Chloride 107 mmol/L (98-107); EST Glomerular Filtration Rate 87 mL/min (>60); Est Glom Filt Rate - Afr Amer 106 mL/min (>60); Globulin 3.5 g/dL (2.2-4.2); Glucose 101 mg/dL (74-106); Potassium 3.7 mmol/L (3.5-5.1); Protein, Total 7.3 g/dL (6.4-8.2); Sodium Level 138 mmol/L (136-145)
[2021-01-25 17:55] LABS: Hemoglobin A1c 5.2 % (3.8-5.6)
== END ==
PROVIDERS: PCP Family Medicine; Referring Provider Family Medicine; Visit Provider Family Medicine
DX: R73.09 Other abnormal glucose (principal)
CPT/HCPCS: 36415; 80053; 83036

== ENCOUNTER 2021-02-19 14:30 | Outpatient (RCR) | payer OTHER, SELFPAY | END 2021-02-21 23:59 | LOC: NS 14:30 | PROVIDERS: PCP Family Medicine; Visit Provider Family Medicine | DX: Z71.3 Dietary counseling and surveillance (principal); E66.9 Obesity, unspecified; Z68.41 Body mass index [BMI] 40.0-44.9, adult | CPT/HCPCS: 97802 ==

== ENCOUNTER 2021-03-04 02:10 | Emergency (ER) | payer OTHER, SELFPAY ==
[2021-03-04 02:11] VITALS: BP 176/96; PULSE 74; RESP 16; TEMP 36.8; O2SAT 98; BMI 42.7
--- NOTE | 2021-03-04 02:25 | EKG12_ITS ---
Test Reason : CP Blood Pressure : / mmHG Vent. Rate : 077 BPM Atrial Rate : 077 BPM P-R Int : 172 ms QRS Dur : 090 ms QT Int : 408 ms P-R-T Axes : 006 058 014 degrees QTc Int : 461 ms Normal sinus rhythm Normal ECG Confirmed by DAISY WEBSTER, CYRUS ([id number]), newspaper editor managing QUAN PERALES ([id number]) on 03/04/2021 1:11:06 PM Referred By: PL Confirmed By:CYRUS VILLA MD
--- NOTE | 2021-03-04 02:26 | EDS_ITS ---
HPI History of Present Illness Chief Complaint: Chest Pain Informant: patient Narrative Narrative: Patient presents with some chest tightness. She states she woke up about an hour and a half ago. She had tingling of her fingertips and face. She felt a little tightness in her chest. Not really short of breath. She states she first thought maybe she was nauseated but actually did not feel nauseated. She had no vomiting. No diarrhea. She does have a history of sleep apnea but was using her CPAP machine. She also has a history of anxiety. Nothing specifically made the symptoms better or worse. [facility] Medical History (Updated 03/04/21 @ 04:[address] Doyle Manjarrez MD) Abnormal Pap smear of cervix Depression Home Medications citalopram 40 mg tablet 40 mg PO DAILY #90 tab 04/05/18 [Rx Last Taken Unknown] cetirizine 10 mg disintegrating tablet 10 mg PO DAILY 12/24/20 [History Last Taken Unknown] Allergy/AdvReac Type Severity Reaction Status Date / Time No Known Allergies Allergy Verified 03/04/21 02:16 Family History Mother Hypertension Father Cancer prostate Grandmother Cancer thyroid Heart disease Breast cancer Grandfather Cancer lung colon Heart disease Unknown Breast cancer, Onset Age: 27 Surgical History H/O LEEP Social History Smoking Status: Never smoker alcohol intake: current substance use type: does not use caffeine: No what type of physical activity do you participate in: none seatbelt use: always do you feel safe at home: Yes additional social history: [employer] Patient works at [employer] [facility] ED Constitutional Constitutional ED: Denies fever(s) or subjective Eyes Eyes: Denies blurry vision or change in vision ENT ENT ED: Denies rhinorrhea or sore throat Cardiovascular Cardiovascular: Reports chest pain, palpitations and racing heartbeat Respiratory/Chest Respiratory/Chest: Denies cough or dyspnea Gastrointestinal Gastrointestinal: Denies diarrhea, nausea or vomiting Genitourinary Genitourinary ED: Denies dysuria Musculoskeletal Musculoskeletal: Reports other Details: She did have tightness of her chest. It did radiate up toward the left shoulder area. ; Denies back pain or neck pain Integumentary Reports other Details: No diaphoresis. ; Denies rash Neurologic Neurologic: Reports paresthesias; Denies headache(s) or weakness Psychiatric Psychiatric: Reports anxiety and depression Endocrine Endocrinology: Denies polydipsia or polyuria Hematologic/Lymphatic Hematologic/Lymphatic: Denies easy bleeding or easy bruising Allergic/Immunologic Allergic/Immunologic ED: Denies urticaria EXAM Physical Exam Const Vital Signs: 03/04/21 02:11 03/04/21 02:33 03/04/21 04:34 Temperature 98.2 F Temperature Source Temporal Pulse Rate 74 76 Respiratory Rate 16 18 Blood Pressure 176/96 H 135/83 H Blood Pressure Mean 122 100 Pulse Ox 98 98 95 Oxygen Delivery Method Room Air Room Air Room Air Positive well nourished, well developed and obese General Appearance ED: well developed and NAD Nutritional Appearance: obese HEENT Reports moist mucous membranes Eyes General Eye ED: Negative for pale conjunctiva or scleral icterus Neck no JVD General: Negative for tenderness Chest Wall inspection of chest normal and palpation of chest normal Resp normal respiratory effort and clear to auscultation bilaterally Effort and Inspection: respiratory distress Auscultation: Negative for rales or rhonchi Cardio regular rate and regular rhythm GI normal to inspection, nondistended, normoactive bowel sounds, soft to palpation and non-tender Back/Spine no CVA tenderness Extremity normal to inspection General Extremety ED: Negative for edema, pulses abnormal or tenderness General Extremity: Negative for edema or pulses abnormal Neuro Sensorium / Orientation: awake and alert Psych mental status grossly normal Heart Score History: Slightly/Non-Suspicious ECG: Normal Age: </= 45 years Risk Factors: 1 or 2 Risk Factors Troponin: </= Normal Limit Score: 1 MDM MDM MDM Narrative Medical decision making narrative: Patient's blood work shows no marked abnormalities. Troponin is negative. X-ray shows no acute process. The patient now recalls that her 3-year-old was messing with her CPAP machine the other day. She is not sure if any of the dials were changed. But this certainly could have started the symptoms that she had. She will check this. If she has any recurrent symptoms she will return here. I recommend she follow- up with her physician. Her symptoms did have some features of sleep apnea as well as panic/anxiety. Her cardiac work-up is negative at this time. I think it is okay that we get her home. Lab Data Attestation: I reviewed the patient's lab results. Labs: Laboratory Results - last 24 hr 03/04/21 03/04/21 02:30 02:30 WBC 7.8 RBC 4.52 Hgb 13.9 Hct 41.6 MCV 92.0 MCH 30.8 MCHC 33.4 RDW Std Deviation 40.6 RDW Coeff of [place] 12.0 Plt Count 179 MPV 12.3 H Immature Gran % (Auto) 0.800 Neut % (Auto) 54.6 Lymph % (Auto) 33.6 [place] % (Auto) 8.1 Eos % (Auto) 2.3 Baso % (Auto) 0.6 Absolute Neuts (auto) 4.3 Absolute Lymphs (auto) 2.62 Nucleated RBC % 0 Sodium 141 Potassium 3.7 Chloride 107 Carbon Dioxide 26.0 Anion Gap 8 BUN 11 Creatinine 0.72 Estim Creat Clear Calc 113.97 Est GFR (MDRD) Af Amer 119 Est GFR (MDRD) Non-Af 99 BUN/Creatinine Ratio 15.4 Glucose 107 H Calcium 8.6 Troponin I High Sens 5 Radiography Diagnostic Testing: Clinical Impression(s) from Imaging Studies Chest X-Ray 03/04/21 03:07 IMPRESSION: No radiographic evidence of acute cardiopulmonary disease. at 0352 Reported and signed by: Ankit Soria MD Electronically Signed: Ankit Soria MD at 3:51 EDT Tel , Service support , EKG Initial EKG: Comments: EKG done for chest pain read by me shows normal sinus rhythm with overall rate of 77. No ectopy. No acute ST elevation or depression. TN interval, QRS duration and QTc normal. Discharge Plan Triage Chief Complaint: Chest Pain ED Provider: Doyle Manjarrez Dx/Rx/DC Orders Clinical Impression: Paresthesias, Chest tightness, Anxiety Instructions: ED Anxiety Reaction, ED Chest Pain, Uncertain Cause Prescriptions: No Action Zyrtec 10 mg tablet,disintegrating 10 mg PO DAILY RF: 0 citalopram 40 mg tablet 40 mg PO DAILY Qty: 90 RF: 3 Primary Care Provider: Federico Carias Referrals: Federico Carias MD [Primary Care Provider] - 3-5 Days Disposition Disposition: Home, Self Care
[2021-03-04 02:33] VITALS: O2SAT 98
[2021-03-04] MEDS: Aspirin 81 MG TAB.CHEW 324 MG PO (02:36)
[2021-03-04 03:05] LABS: Absolute Lymphocyte Count 2.62 X10^3/uL (0.83-4.51); Absolute Neutrophil Count 4.3 X10^3/uL (2.0-7.7); Basophil# 0.05 X10^3/uL; Basophil% 0.6 % (0-1); Eosinophil# 0.18 X10^3/uL; Eosinophils% 2.3 % (0-5); Hematocrit 41.6 % (37-47); Hemoglobin 13.9 g/dL (12.0-15.0); Lymphocyte # 2.62 X10^3/ul (0.83-4.51); Lymphocyte % 33.6 % (19-41); Mean Corp Hgb Conc 33.4 g/dL (32-36); Mean Corpuscular Hgb 30.8 pg (27.0-32.0); Mean Platelet Vol. 12.3 fl (6.2-12.0); Monocyte# 0.63 X10^3/uL; Monocyte% 8.1 % (0-10); NRBC Flagged by Analyzer 0 % (0-5); Neutrophil # 4.25 X10^3/uL (2.7-7.7); Neutrophil % 54.6 % (47-70); Platelet Count 179 K/mm3 (150-450); RBC Distribution Width SD 40.6 fl (35.1-43.9); Red Blood Count 4.52 M/mm3 (4.2-5.4); White Blood Count 7.8 K/mm3 (4.4-11.0)
--- NOTE | 2021-03-04 03:07 | RAD_ITS ---
EXAM: XR CHEST, 1 VIEW : 1985 CLINICAL INDICATION: chest pain TECHNIQUE: Frontal view of the chest. This report was created using [employer] report generation technology. COMPARISON: None. FINDINGS: LUNGS AND PLEURAL SPACES: Unremarkable. No consolidation or edema. No pneumothorax. No effusion. HEART: Unremarkable. Cardiac silhouette not enlarged. MEDIASTINUM: Central airways and mediastinal contour are unremarkable. BONES/JOINTS: Unremarkable. SOFT TISSUES: Unremarkable. RAD/Chest 1 View (Portable) IMPRESSION: No radiographic evidence of acute cardiopulmonary disease. at 0352 Reported and signed by: Ankit Soria MD Electronically Signed: Ankit Soria MD at 3:51 EDT Tel , Service support ,
[2021-03-04 03:51] LABS: Anion Gap 8 (5-15); BUN 11 mg/dL (7-18); BUN/Creat Ratio 15.4 RATIO (10-20); Calcium,Total 8.6 mg/dL (8.5-10.1); Chloride 107 mmol/L (98-107); Creatinine, Serum 0.72 mg/dL (0.55-1.02); EST Glomerular Filtration Rate 99 mL/min (>60); Est Glom Filt Rate - Afr Amer 119 mL/min (>60); Estimated Creatinine Clearance 113.97 ml/min; Glucose 107 mg/dL (74-106); Potassium 3.7 mmol/L (3.5-5.1); Sodium Level 141 mmol/L (136-145); Troponin-I HS 5 pg/mL (3.0-54.0)
[2021-03-04 04:34] VITALS: BP 135/83; PULSE 76; RESP 18; O2SAT 95
[2021-03-04 04:48] VITALS: BP 137/81; PULSE 75; RESP 18; O2SAT 96
== END 2021-03-04 04:52 | disposition home or self-care (01) ==
PROVIDERS: Emergency Provider Emergency Medicine; PCP Family Medicine
DX: R20.2 Paresthesia of skin (principal); R07.89 Other chest pain; F41.9 Anxiety disorder, unspecified; F32.9 Major depressive disorder, single episode, unspecified; G47.30 Sleep apnea, unspecified; E66.9 Obesity, unspecified; Z79.899 Other long term (current) drug therapy
CPT/HCPCS: 71045; 80048; 84484; 85025; 93005; 99285; A4216

== ENCOUNTER 2021-03-05 16:00 | Outpatient (RCR) | payer OTHER, SELFPAY | END 2021-03-24 23:59 | LOC: NS 16:00 | PROVIDERS: PCP Family Medicine; Visit Provider Family Medicine | DX: Z71.3 Dietary counseling and surveillance (principal); E66.9 Obesity, unspecified; Z68.41 Body mass index [BMI] 40.0-44.9, adult | CPT/HCPCS: 97802 ==

== ENCOUNTER 2021-07-09 14:16 | Outpatient (CLI) | payer OTHER, SELFPAY ==
[2021-07-09 16:09] LABS: Absolute Lymphocyte Count 2.35 X10^3/uL (0.83-4.51); Basophil# 0.04 X10^3/uL; Basophil% 0.5 % (0-1); Eosinophil# 0.11 X10^3/uL; Eosinophils% 1.3 % (0-5); Hemoglobin 13.6 g/dL (12.0-15.0); Lymphocyte # 2.35 X10^3/ul (0.83-4.51); Lymphocyte % 28.7 % (19-41); Mean Corpuscular Hgb 30.3 pg (27.0-32.0); Mean Corpuscular Volume 89.1 fL (81-99); Mean Platelet Vol. 12.1 fl (6.2-12.0); Monocyte% 7.3 % (0-10); NRBC Flagged by Analyzer 0 % (0-5); Neutrophil # 5.02 X10^3/uL (2.7-7.7); Neutrophil % 61.5 % (47-70); Platelet Count 206 K/mm3 (150-450); RBC Distribution Width CV 11.9 % (11.6-14.6); RBC Distribution Width SD 39.1 fl (35.1-43.9); Red Blood Count 4.49 M/mm3 (4.2-5.4); White Blood Count 8.2 K/mm3 (4.4-11.0)
[2021-07-09 16:34] LABS: T4 Free Direct 0.87 ng/dL (0.76-1.46); Thyroid Stim Hormone (TSH) 1.04 uIU/mL (0.358-3.74)
[2021-07-12 08:10] LABS: Thyroid Stim Immunoglob <0.10 IU/L (0.00-0.55)
[2021-07-12 13:17] LABS: Anti-Thyroglobulin AB < 1.0 IU/mL (0.0-0.9); Thyroglobulin, Serum Qt. 14.2 ng/mL (1.5-38.5); Thyroid Peroxidase AB < 8 IU/mL (0-34)
== END 2021-07-09 23:59 | disposition home or self-care (01) ==
LOC: MTLAB 14:20
PROVIDERS: PCP Family Medicine; Referring Provider Family Medicine; Visit Provider Family Medicine
DX: E01.0 Iodine-deficiency related diffuse (endemic) goiter (principal)
CPT/HCPCS: 84432; 84439; 84443; 84445; 85025; 86376; 86800

== ENCOUNTER 2021-07-15 15:19 | Outpatient (CLI) | payer OTHER, SELFPAY ==
--- NOTE | 2021-07-15 15:28 | US_ITS ---
STUDY: THYROID ULTRASOUND REASON FOR EXAM: Female, 36 years old. Thyromegaly. TECHNIQUE: Ultrasound evaluation of the thyroid was performed with real-time and static chiu-scale imaging. COMPARISON: None. FINDINGS: RIGHT LOBE: The right lobe of the thyroid gland measures 5.8 x 2.5 x 1.9 cm. There is a heterogeneous echotexture. Long the posterior aspect of the lower pole of the right thyroid there is a 1.5 x 1.2 x 1.2 cm isoechoic mass. It is uncertain whether this represents a parathyroid gland or a nodule within the thyroid. Normal vascularity. LEFT LOBE: The left lobe of the thyroid gland measures 5.2 x 2.3 x 1.7 cm. There is a heterogeneous echotexture. There are no demonstrated solid, cystic or complex lesions. Normal vascularity. ISTHMUS: The isthmus measures 0.4 cm. Tiny cyst measuring 2 mm in the left isthmus. The regional lymph nodes are normal. US/Thyroid IMPRESSION: 1. Parathyroid gland versus nodule in the right thyroid. If this is a thyroid nodule would have a TIRADS categorization of TR 3. This nodule is mildly suspicious. Recommend follow-up thyroid ultrasounds at 1, 3 and 5 years. 2. Mildly prominent thyroid without other abnormality. Electronically Signed: Lemuel Ayala DO at 23:51 EST ,
== END 2021-07-15 23:59 | disposition home or self-care (01) ==
LOC: US 15:23
PROVIDERS: PCP Family Medicine; Visit Provider Family Medicine
DX: E01.0 Iodine-deficiency related diffuse (endemic) goiter (principal)
CPT/HCPCS: 76536

== ENCOUNTER → 2022-01-30 | Outpatient (CLI) | payer OTHER, SELFPAY ==
[2022-01-30 15:34] LABS: Hemoglobin A1c 5.1 % (3.8-5.6)
[2022-01-30 15:53] LABS: ALB/GLOB Ratio 1.2 RATIO (0.9-2.4); AST(SGOT) 10 U/L (15-37); Alanine Aminotransfer ALT/SGPT 25 U/L (13-56); Alkaline Phosphatase 51 U/L (45-117); Anion Gap 6 (5-15); BUN 11 mg/dL (7-18); BUN/Creat Ratio 10.6 RATIO (10-20); Calcium,Total 9.3 mg/dL (8.5-10.1); Chloride 106 mmol/L (98-107); Creatinine, Serum 1.04 mg/dL (0.55-1.02); EST Glomerular Filtration Rate 64 mL/min (>60); Est Glom Filt Rate - Afr Amer 77 mL/min (>60); Globulin 3.4 g/dL (2.2-4.2); Glucose 89 mg/dL (74-106); Potassium 3.6 mmol/L (3.5-5.1); Protein, Total 7.4 g/dL (6.4-8.2); Sodium Level 143 mmol/L (136-145)
== END | disposition home or self-care (01) ==
LOC: MTLAB 14:03
PROVIDERS: PCP Family Medicine; Referring Provider Family Medicine; Visit Provider Family Medicine
DX: R73.09 Other abnormal glucose (principal)
CPT/HCPCS: 36415; 80053; 83036

== ENCOUNTER → 2022-07-30 | Outpatient (CLI) | payer OTHER, SELFPAY ==
[2022-07-30 15:28] LABS: Absolute Lymphocyte Count 2.09 X10^3/uL (0.83-4.51); Absolute Neutrophil Count 3.7 X10^3/uL (2.0-7.7); Basophil# 0.06 X10^3/uL; Basophil% 0.9 % (0-1); Eosinophil# 0.11 X10^3/uL; Eosinophils% 1.7 % (0-5); Hemoglobin 13.8 g/dL (12.0-15.0); Lymphocyte # 2.09 X10^3/ul (0.83-4.51); Lymphocyte % 31.9 % (19-41); Mean Corp Hgb Conc 33.7 g/dL (32-36); Mean Corpuscular Volume 89.1 fL (81-99); Mean Platelet Vol. 12.1 fl (6.2-12.0); Monocyte# 0.59 X10^3/uL; NRBC Flagged by Analyzer 0 % (0-5); Neutrophil # 3.69 X10^3/uL (2.7-7.7); Neutrophil % 56.2 % (47-70); Platelet Count 208 K/mm3 (150-450); RBC Distribution Width CV 12.1 % (11.6-14.6); RBC Distribution Width SD 39.2 fl (35.1-43.9); White Blood Count 6.6 K/mm3 (4.4-11.0)
[2022-07-30 15:45] LABS: ALB/GLOB Ratio 1.2 RATIO (0.9-2.4); AST(SGOT) 14 U/L (15-37); Alanine Aminotransfer ALT/SGPT 28 U/L (13-56); Albumin, Serum 4.1 g/dL (3.2-5.0); Alkaline Phosphatase 49 U/L (45-117); Anion Gap 8 (5-15); BUN 12 mg/dL (7-18); BUN/Creat Ratio 16.4 RATIO (10-20); Calcium,Total 9.3 mg/dL (8.5-10.1); Chloride 105 mmol/L (98-107); Cholesterol 171 mg/dL (200); Creatinine, Serum 0.73 mg/dL (0.55-1.02); EST Glomerular Filtration Rate 96 mL/min (>60); Est Glom Filt Rate - Afr Amer 116 mL/min (>60); Globulin 3.4 g/dL (2.2-4.2); Glucose 78 mg/dL (74-106); High Density Lipoprotein 35 mg/dL; Potassium 3.7 mmol/L (3.5-5.1); Protein, Total 7.5 g/dL (6.4-8.2); Sodium Level 139 mmol/L (136-145); T4 Free Direct 0.96 ng/dL (0.76-1.46); Thyroid Stim Hormone (TSH) 1.03 uIU/mL (0.358-3.74); Triglycerides 153 mg/dL; Very Low Density Lipoprotein 31 mg/dL (5-40)
== END | disposition home or self-care (01) ==
LOC: MTLAB 11:36
PROVIDERS: PCP Family Medicine; Visit Provider Family Medicine
DX: E66.9 Obesity, unspecified (principal); E01.0 Iodine-deficiency related diffuse (endemic) goiter
CPT/HCPCS: 36415; 80053; 80061; 84439; 84443; 85025

== ENCOUNTER → 2022-08-01 | Outpatient (CLI) | payer OTHER, SELFPAY ==
--- NOTE | 2022-08-01 13:02 | US_ITS ---
STUDY: THYROID ULTRASOUND REASON FOR EXAM: Female, 37 years old. Thyromegaly. TECHNIQUE: Ultrasound evaluation of the thyroid was performed with real-time and static chiu-scale imaging. COMPARISON: July 15, 2021 and December 13, 2019 FINDINGS: RIGHT LOBE: The right lobe of the thyroid gland measures 5.8 x 2.9 x 2.2 cm. There is a homogeneous echotexture. There is a 1.2 x 1.1 x 1.2 cm isoechoic nodule in the posterior mid thyroid. Normal vascularity on Doppler imaging. LEFT LOBE: The left lobe of the thyroid gland measures 5.6 x 2.5 x 1.9 cm cm. There is a homogeneous echotexture. There are no demonstrated solid, cystic or complex lesions. Normal vascularity on Doppler imaging. ISTHMUS: The isthmus measures 0.5 cm. The regional lymph nodes are normal. US/Thyroid IMPRESSION: 1. Stable prominence of the thyroid. 2. Stable isoechoic nodule in the right thyroid. Nodules considered mildly suspicious, TR 3, by TI-RADS categorization. No FNA or follow-up is required because of the small size of the nodule. Electronically Signed: Lemuel Ayala DO at 19:17 EST ,
== END | disposition home or self-care (01) ==
LOC: US 13:00
PROVIDERS: PCP Family Medicine; Visit Provider Family Medicine
DX: E01.0 Iodine-deficiency related diffuse (endemic) goiter (principal)
CPT/HCPCS: 76536

== ENCOUNTER → 2022-12-30 | Outpatient (CLI) | payer OTHER, SELFPAY ==
--- NOTE | 2022-12-30 14:22 | BI_ITS ---
MAMMOGRAPHY - BILATERAL DIAGNOSTIC REASON FOR EXAM: Female, 37 years old. Left lateral breast pain for 3 weeks. PERTINENT HISTORY: Grandmother with breast cancer. TECHNIQUE: Digital bilateral breast radha (3D mammographic acquisition) in the CC and MLO projections. 2-D mediolateral oblique (MLO) and craniocaudad (CC) views of both breasts were obtained. CAD: Full Field Digital Mammography with Computer Added Detection was performed. COMPARISON: Comparison is made with prior study dated April 02, 2020 and April 29, 2017. FINDINGS: Breast Composition: The breasts are heterogeneously dense, which may obscure small masses. There are no dominant masses or suspicious calcifications. Stable fat-containing bilateral axillary lymph nodes. No other significant abnormalities are identified. There has been no significant change since the prior study. BI/DIAG MAMM W/CAD, BILAT IMPRESSION: Stable bilateral diagnostic mammogram. With the patient''s history of left lateral breast pain, correlation with ultrasound is recommended. ASSESSMENT CATEGORY: BIRADS Category 0: Incomplete. Need additional imaging evaluation. A letter regarding these results will be sent to the patient by the facility within 30 days. Approximately 10% of breast cancers are not detected by mammography. A normal mammogram should not delay biopsy of a clinically suspicious abnormality. Electronically Signed: Jamaal Medina MD at 15:15 EDT ,
--- NOTE | 2022-12-30 14:22 | US_ITS ---
STUDY: ULTRASOUND BREAST - LEFT REASON FOR EXAM: Female, 37 years old. Pain in the left breast. TECHNIQUE: Axial and longitudinal images of the LEFT breast were performed with a high resolution ultrasound transducer. # OF IMAGES: 37 COMPARISON: Comparison is made with prior mammogram done earlier today. FINDINGS: LEFT Breast: The lateral half of the left breast was examined with ultrasound. No sonographic abnormality is seen. US/Breast Limited Unilateral IMPRESSION: No sonographic abnormality is seen. ASSESSMENT CATEGORY: BIRADS Category 1: Negative. A letter regarding these results will be sent to the patient by the facility within 30 days. Electronically Signed: Jamaal Medina MD at 14:13 EDT ,
== END | disposition home or self-care (01) ==
PROVIDERS: PCP Family Medicine; Referring Provider Nurse Practitioner Women's Health; Visit Provider Nurse Practitioner Women's Health
DX: N64.4 Mastodynia (principal)
CPT/HCPCS: 76642; 77062; 77066; G0279

== ENCOUNTER → 2023-01-02 | Outpatient (CLI) | payer OTHER, SELFPAY ==
[2023-01-02 12:21] LABS: Bacteria 0 SEEN /hpf (None Seen); Mucous, Urine 0 SEEN /hpf (<or=2+)
[2023-01-02 12:33] LABS: Color, Urine Yellow (Yellow); Glucose, Dipstick Normal (Normal); Ketone-Dipstick 5 mg/dl (Negative); Leukocyte Esterase-Dipstick 25 /ul (Negative); Nitrite-Dipstick Negative (Negative); Occult Blood-Urine 10 /ul (Negative); Protein-Dipstick 30 mg/dl (Negative); Specific Gravity, Urine 1.015 (1.002-1.030); Urine Bilirubin Dipstick Negative (Negative); Urine Clarity Clear (Clear); Urine Urobilinogen Normal (Normal)
[2023-01-02 12:49] LABS: Red Blood Cells-Urine 0-5 SEEN /hpf (0-5); Squamous Epithelial Cells - UA 0-5 SEEN /hpf (5-10); White Blood Cells 0-5 SEEN /hpf (0-5)
== END | disposition home or self-care (01) ==
LOC: LABSPEC 12:01
PROVIDERS: PCP Family Medicine; Referring Provider Physician Assistant Surgical; Visit Provider Physician Assistant Surgical
DX: R35.0 Frequency of micturition (principal)
CPT/HCPCS: 81001; 87077; 87086; 87088

== ENCOUNTER → 2023-10-30 | Outpatient (CLI) | payer OTHER, SELFPAY ==
[2023-10-30 10:20] LABS: Absolute Lymphocyte Count 1.55 X10^3/uL (0.83-4.51); Absolute Neutrophil Count 3.9 X10^3/uL (2.0-7.7); Basophil# 0.03 X10^3/uL; Basophil% 0.5 % (0-1); Eosinophil# 0.09 X10^3/uL; Eosinophils% 1.5 % (0-5); Hematocrit 41.4 % (37-47); Hemoglobin 13.8 g/dL (12.0-15.0); Lymphocyte # 1.55 X10^3/ul (0.83-4.51); Lymphocyte % 25.5 % (19-41); Mean Corp Hgb Conc 33.3 g/dL (32-36); Mean Corpuscular Hgb 29.8 pg (27.0-32.0); Mean Corpuscular Volume 89.4 fL (81-99); Monocyte# 0.45 X10^3/uL; Monocyte% 7.4 % (0-10); NRBC Flagged by Analyzer 0 % (0-5); Neutrophil # 3.93 X10^3/uL (2.7-7.7); Neutrophil % 64.6 % (47-70); Platelet Count 186 K/mm3 (150-450); RBC Distribution Width CV 12.2 % (11.6-14.6); RBC Distribution Width SD 39.9 fl (35.1-43.9); Red Blood Count 4.63 M/mm3 (4.2-5.4); White Blood Count 6.1 K/mm3 (4.4-11.0)
[2023-10-30 10:55] LABS: ALB/GLOB Ratio 1.3 RATIO (0.9-2.4); AST(SGOT) 11 U/L (15-37); Alanine Aminotransfer ALT/SGPT 30 U/L (13-56); Albumin, Serum 3.9 g/dL (3.2-5.0); Alkaline Phosphatase 49 U/L (45-117); Anion Gap 7 (5-15); BUN 15 mg/dL (7-18); BUN/Creat Ratio 25.1 RATIO (10-20); Calcium,Total 8.9 mg/dL (8.5-10.1); Chloride 108 mmol/L (98-107); Cholesterol 132 mg/dL (200); EST Glomerular Filtration Rate 120 mL/min (>60); Est Glom Filt Rate - Afr Amer 145 mL/min (>60); Glucose 102 mg/dL (74-106); High Density Lipoprotein 37 mg/dL; Protein, Total 6.9 g/dL (6.4-8.2); Sodium Level 139 mmol/L (136-145); T4 Free Direct 1.12 ng/dL (0.76-1.46); Thyroid Stim Hormone (TSH) 1.26 uIU/mL (0.358-3.74); Triglycerides 34 mg/dL; Very Low Density Lipoprotein 7 mg/dL (5-40)
[2023-11-02 18:07] LABS: Anti-Thyroglobulin AB < 1.0 IU/mL (0.0-0.9); Thyroglobulin, Serum Qt. 21.4 ng/mL (1.5-38.5); Thyroid Peroxidase AB < 9 IU/mL (0-34); Thyroid Stim Immunoglob <0.10 IU/L (0.00-0.55)
== END | disposition home or self-care (01) ==
LOC: MFPLAB 08:29
PROVIDERS: PCP Family Medicine; Visit Provider Family Medicine
DX: E66.9 Obesity, unspecified (principal); L65.9 Nonscarring hair loss, unspecified; E01.0 Iodine-deficiency related diffuse (endemic) goiter
CPT/HCPCS: 36415; 80053; 80061; 84432; 84439; 84443; 84445; 85025; 86376; 86800

== ENCOUNTER → 2024-06-03 | Outpatient (CLI) | payer OTHER, SELFPAY ==
[2024-06-03 12:04] LABS: Absolute Lymphocyte Count 2.14 X10^3/uL (0.83-4.51); Absolute Neutrophil Count 3.3 X10^3/uL (2.0-7.7); Basophil# 0.03 X10^3/uL; Basophil% 0.5 % (0-1); Eosinophil# 0.61 X10^3/uL; Eosinophils% 9.2 % (0-5); Hematocrit 42.5 % (37-47); Hemoglobin 13.8 g/dL (12.0-15.0); Lymphocyte # 2.14 X10^3/ul (0.83-4.51); Lymphocyte % 32.4 % (19-41); Mean Corp Hgb Conc 32.5 g/dL (32-36); Mean Corpuscular Hgb 29.6 pg (27.0-32.0); Mean Platelet Vol. 12.5 fl (6.2-12.0); Monocyte# 0.54 X10^3/uL; Monocyte% 8.2 % (0-10); NRBC Flagged by Analyzer 0 % (0-5); Neutrophil # 3.26 X10^3/uL (2.7-7.7); Neutrophil % 49.4 % (47-70); Platelet Count 208 K/mm3 (150-450); RBC Distribution Width CV 12.2 % (11.6-14.6); RBC Distribution Width SD 40.5 fl (35.1-43.9); Red Blood Count 4.67 M/mm3 (4.2-5.4); White Blood Count 6.6 K/mm3 (4.4-11.0)
[2024-06-03 16:10] LABS: ALB/GLOB Ratio 1.4 RATIO (0.9-2.4); AST(SGOT) 11 U/L (15-37); Alanine Aminotransfer ALT/SGPT 24 U/L (13-56); Albumin, Serum 4.4 g/dL (3.2-5.0); Alkaline Phosphatase 49 U/L (45-117); Anion Gap 5 (5-15); BUN 16 mg/dL (7-18); BUN/Creat Ratio 21.4 RATIO (10-20); Calcium,Total 9.2 mg/dL (8.5-10.1); Chloride 106 mmol/L (98-107); Cholesterol 167 mg/dL (200); Creatinine, Serum 0.75 mg/dL (0.55-1.02); EST Glomerular Filtration Rate 92 mL/min (>60); Est Glom Filt Rate - Afr Amer 112 mL/min (>60); Ferritin 116 ng/mL (8-252); Globulin 3.2 g/dL (2.2-4.2); Glucose 80 mg/dL (74-106); High Density Lipoprotein 48 mg/dL; Potassium 3.4 mmol/L (3.5-5.1); Protein, Total 7.6 g/dL (6.4-8.2); Sodium Level 137 mmol/L (136-145); T4 Free Direct 1.15 ng/dL (0.76-1.46); Triglycerides 66 mg/dL; Very Low Density Lipoprotein 13 mg/dL (5-40)
[2024-06-08 07:08] LABS: Anti-Thyroglobulin AB < 1.0 IU/mL (0.0-0.9); Thyroglobulin, Serum Qt. 25.3 ng/mL (1.5-38.5); Thyroid Peroxidase AB 26 IU/mL (0-34); Thyroid Stim Immunoglob <0.10 IU/L (0.00-0.55)
== END | disposition home or self-care (01) ==
LOC: MFPLAB 10:49
PROVIDERS: PCP Family Medicine; Referring Provider Family Medicine; Visit Provider Family Medicine
DX: L65.9 Nonscarring hair loss, unspecified (principal); N39.0 Urinary tract infection, site not specified; E01.0 Iodine-deficiency related diffuse (endemic) goiter; E66.9 Obesity, unspecified
CPT/HCPCS: 36415; 80053; 80061; 82728; 84432; 84439; 84443; 84445; 85025; 86376; 86800; 87086; 87088

== ENCOUNTER → 2024-06-15 | Outpatient (CLI) | payer OTHER, SELFPAY ==
--- NOTE | 2024-06-15 09:36 | US_ITS ---
EXAM: US ABDOMEN LIMITED, RIGHT UPPER QUADRANT CLINICAL INDICATION: RUQ pain TECHNIQUE: Real-time ultrasound of the right upper quadrant with image documentation. COMPARISON: No relevant prior studies available. FINDINGS: LIVER: No significant abnormality. There is normal echotexture. No focal hepatic lesion. No intrahepatic biliary ductal dilation. GALLBLADDER: No significant abnormality. No shadowing gallstone. No gallbladder wall thickening is demonstrated. No pericholecystic fluid. Negative sonographic Valdez''s sign. COMMON BILE DUCT: Normal as visualized. The proximal common bile duct is within normal limits for the patient''s age. PANCREAS: Normal as visualized. No focal abnormality is demonstrated in the pancreas. No pancreatic ductal dilatation. RIGHT KIDNEY: No significant abnormality. There is no hydronephrosis. No shadowing calculus. No focal lesion or perinephric collection is demonstrated. US/Abdomen Limited IMPRESSION: Normal right upper quadrant ultrasound. Electronically Signed: Aric Johnson DO at 23:55 EST ,
== END | disposition home or self-care (01) ==
PROVIDERS: PCP Family Medicine; Referring Provider Family Medicine; Visit Provider Family Medicine
DX: R10.11 Right upper quadrant pain (principal)
CPT/HCPCS: 76705

== ENCOUNTER → 2024-06-25 | Outpatient (CLI) | payer OTHER, SELFPAY ==
--- NOTE | 2024-06-25 11:23 | US_ITS ---
PROCEDURE: THYROID REASON FOR EXAM: Thyromegaly. TECHNIQUE: Real-time grayscale and color-flow imaging was performed of the thyroid gland. Routine image documentation was performed. COMPARISON: None available for comparison FINDINGS: Right thyroid lobe measures 6.0 x 2.4 x 2.0 cm.. Left thyroid lobe measures 5.8 x 2.3 x 1.7 cm.. Isthmus thickness is0.4 cm.. Thyroid Size: Enlarged Background Echotexture: Heterogeneous Thyroid Nodules: Right lobe Right: Mid pole, predominantly solid, 1.1 x 0.8 x 0.9 cm, ill-defined margin, mildly hypoechoic, no calcifications, wider than tall, TR 4. US/Thyroid IMPRESSION: 1. A TR 4 category nodule in the right midpole. No FNA warranted. Follow-up ultrasound recommended in 12 months. 2. Thyromegaly. Reading Location: [facility]
== END | disposition home or self-care (01) ==
PROVIDERS: PCP Family Medicine; Referring Provider Family Medicine; Visit Provider Family Medicine
DX: E01.0 Iodine-deficiency related diffuse (endemic) goiter (principal)
CPT/HCPCS: 76536

== ENCOUNTER 2024-09-07 00:28 | Observation (INO) | payer OTHER, SELFPAY ==
[2024-09-07] VITALS (16 sets, daily range): BP systolic 124–159; BP diastolic 70–98; PULSE 60–98; RESP 12–18; TEMP 36–36.8; O2SAT 97–100; BMI 32.0; BMI 31.7
--- NOTE | 2024-09-07 00:45 | EKG12_ITS ---
Test Reason : STROKE Blood Pressure : */* mmHG Vent. Rate : 82 BPM Atrial Rate : 82 BPM P-R Int : 176 ms QRS Dur : 96 ms QT Int : 376 ms P-R-T Axes : 53 50 34 degrees QTcB Int : 439 ms Normal sinus rhythm Normal ECG Confirmed by Rodolfo Hay ([id number]), editor department QUAN PERALES ([id number]) on 09/09/2024 6:55:07 AM Referred By: Confirmed By: Rodolfo Hay
--- NOTE | 2024-09-07 00:45 | CT_ITS ---
PROCEDURE: STROKE CTA HEAD AND NECK W/CON 09/07/2024 REASON FOR EXAM: NEURO DEFICIT, ACUTE, STROKE SUSPECTED TECHNIQUE: CTA imaging of the head and neck from the aortic arch to the skull vertex with out constrast and with intravenous contrast. Coronal and Sagittal reconstruction series were provided. 3D post processing with reformations, Maximum intensity projection (MIPs) Volume rendering and Shaded surface rendering was provided. CONTRAST: 100 cc Isovue 370 IV One or more dose reduction techniques were used (e.g., Automated exposure control, adjustment of the mA and/or kV according to patient size, use of iterative reconstruction technique). RADIATION DOSE SUMMARY: CTDlvol: 24.91 mGy DLP: 759.72 mGycm COMPARISON: None available FINDINGS: The aortic arch appears within limits. There is some motion artifact at the origin of the great vessels. Standard three-vessel origin. The vertebral arteries arise from the right brachiocephalic and left subclavian as expected with the left mildly dominant. The cervical vertebral arteries appear intact. Both contribute to the basilar artery. The right and left common, internal and external carotid arteries appear intact without flow significant stenosis or dissection. Right and left internal carotid arteries at the skull base, vertical and horizontal petrous segments and para sellar carotids appear intact. The right and left middle and anterior cerebral arteries appear intact. The basilar and posterior cerebral arteries appear intact. Superior cerebellar arteries appear within limits. No vessel cut off, flow significant stenosis or aneurysm identified. Major dural venous sinuses as imaged appear within limits. Visualized apices appear clear. CT/STROKE CTA Head AND Neck W/Con IMPRESSION: No vessel cut off, flow significant stenosis, dissection or aneurysm identified as above. Reading Location: [id number]
--- NOTE | 2024-09-07 00:45 | CT_ITS ---
PROCEDURE: STROKE BRAIN/HEAD WITHOUT CONT 09/07/2024 REASON FOR EXAM: NEURO DEFICIT, ACUTE, STROKE SUSPECTED TECHNIQUE: Head CT without intravenous contrast. Coronal and Sagittal reconstruction series were provided. One or more dose reduction techniques were used (e.g., Automated exposure control, adjustment of the mA and/or kV according to patient size, use of iterative reconstruction technique. RADIATION DOSE SUMMARY: CTDlvol: 44.99 mGy DLP: 796.11 mGycm COMPARISON: None available FINDINGS: No intracranial hemorrhage, mass effect or CT evidence of large vascular territory acute infarct. The ventricles are within limits and midline. The visualized paranasal sinuses, mastoids and orbits appear within limits. CT/STROKE Brain/Head without Cont IMPRESSION: No intracranial hemorrhage, mass effect or CT evidence of large vascular territ ory acute infarct. Results communicated verbally by phone by myself to Dr. Kern at 1:05 a.m. 08/23 Reading Location: [id number]
--- NOTE | 2024-09-07 00:45 | RAD_ITS ---
PROCEDURE: CHEST 1 VIEW 09/07/2024 REASON FOR EXAM: NEURO DEFICIT, ACUTE, STROKE SUSPECTED TECHNIQUE: Frontal view of the chest. COMPARISON: None FINDINGS: The lungs are expanded. There is no demonstrated parenchymal abnormality. There is no demonstrated pleural abnormality. Normal heart and pericardium. Normal mediastinum and kenia. Normal visualized pulmonary arteries. Normal visualized aortic arch and descending thoracic aorta. Normal visualized thoracic spine. Normal visualized ribs, clavicles, and shoulders. There is no demonstrated abnormality of the visualized soft tissue structures of the upper abdomen. RAD/Chest 1 View IMPRESSION: Unremarkable examination of the chest. Reading [facility] [place]
[2024-09-07 00:53] LABS: Absolute Lymphocyte Count 3.19 X10^3/uL (0.83-4.51); Absolute Neutrophil Count 3.8 X10^3/uL (2.0-7.7); Basophil# 0.05 X10^3/uL; Basophil% 0.6 % (0-1); Eosinophil# 0.19 X10^3/uL; Eosinophils% 2.4 % (0-5); Hematocrit 38.4 % (37-47); Hemoglobin 13.4 g/dL (12.0-15.0); Lymphocyte # 3.19 X10^3/ul (0.83-4.51); Lymphocyte % 40.5 % (19-41); Mean Corp Hgb Conc 34.9 g/dL (32-36); Mean Corpuscular Hgb 30.4 pg (27.0-32.0); Mean Corpuscular Volume 87.1 fL (81-99); Monocyte# 0.61 X10^3/uL; Monocyte% 7.7 % (0-10); NRBC Flagged by Analyzer 0 % (0-5); Neutrophil # 3.82 X10^3/uL (2.7-7.7); Neutrophil % 48.5 % (47-70); Platelet Count 175 K/mm3 (150-450); RBC Distribution Width CV 12.1 % (11.6-14.6); RBC Distribution Width SD 38.7 fl (35.1-43.9); Red Blood Count 4.41 M/mm3 (4.2-5.4); White Blood Count 7.9 K/mm3 (4.4-11.0)
[2024-09-07 00:58] LABS: Bedside Glucose 97 mg/dL (74-106)
--- NOTE | 2024-09-07 00:59 | ED.RN ---
0051: [facility] CALLED. PT. BACK IN ROOM
[2024-09-07 01:12] LABS: Prothrombin Time (Protime)PT. 13.7 SECONDS (11.7-14.9)
[2024-09-07 01:13] LABS: Anion Gap 13 (5-15); BUN 13 mg/dL (4-19); BUN/Creat Ratio 16.5 RATIO (10-20); Calcium,Total 9.6 mg/dL (7.6-11.0); Carbon Dioxide 23.2 mmol/L (21.0-32.0); Chloride 105 mmol/L (98-108); Creatinine, Serum 0.79 mg/dL (0.70-1.20); EST Glomerular Filtration Rate 99 (>60); Estimated Creatinine Clearance 120.54 ml/min (50-250); Glucose 102 mg/dL (70-99); Partial Thromboplast Time 26.5 Seconds (24.1-36.2); Potassium 3.5 mmol/L (3.3-5.1); Sodium Level 141 mmol/L (133-145)
--- NOTE | 2024-09-07 01:51 | PCM.HP.STD ---
HPI - General General Date of Admission: 09/07/24 Date of Service: 09/07/24 Chief Complaint: Strokelike symptoms HPI Narrative CONCEPCION ALFRED, is a 39 F who presented to [facility] ED on 09/07/24 with strokelike symptoms. Patient has no significant past medical history. Last known well 10 PM when patient went to bed. She woke up at 11:20 PM with shortness of breath and panicked. She had left arm numbness and pain at that time, so she came in for further evaluation. Stroke alert was called on arrival here. CT brain and CTA head/neck were unremarkable. Chest x-ray unremarkable. Patient reported continued left arm numbness and pain in the ED. NIHSS score of 1 for mild to moderate sensory loss per neurology. She was hypertensive to the 150s systolic, otherwise hemodynamically stable on room air. CBC and BMP unremarkable. Neurology recommended hospitalization for completion of stroke workup, and hospitalist was contacted for admission. I saw the patient at bedside in the ED. Patient was laying back comfortably in bed, conversing normally, in no acute distress. She reported very mild left arm sensory changes currently, improved from earlier tonight. She denied any pain currently. She did report feeling somewhat anxious but otherwise denied any other concerns at this time. [facility] Medical History (Updated 09/07/24 @ 01:[address] Darvin Kern, ) Abnormal Pap smear of cervix Depression Home Medications ?Medication ?Instructions ?Recorded ?Last Taken ?Type cetirizine 10 mg disintegrating 10 mg PO DAILY 12/24/20 Unknown History tablet (Zyrtec) multivitamin 1 tab PO DAILY 12/24/22 Unknown History Allergy/AdvReac Type Severity Reaction Status Date / Time No Known Allergies Allergy Verified 09/07/24 00:29 Family History Mother Hypertension Father Cancer prostate Grandmother Cancer thyroid Heart disease Breast cancer Grandfather Cancer lung colon Heart disease Unknown Breast cancer, Onset Age: 27 Surgical History H/O LEEP Social History Smoking Status: Never smoker alcohol intake: current substance use type: does not use caffeine: No what type of physical activity do you participate in: none seatbelt use: always do you feel safe at home: Yes additional social history: [place] Patient works at [employer] ROS Constitutional Constitutional: Denies chills, fatigue, fever(s) or weakness Eyes Eyes: Denies change in vision Cardiovascular Cardiovascular: Denies chest pain Respiratory/Chest Respiratory/Chest: Denies shortness of breath at rest Gastrointestinal Gastrointestinal: Denies abdominal pain Musculoskeletal Musculoskeletal: Denies arthralgias or myalgias Neurologic Neurologic: Reports numbness and tingling; Denies abnormal gait, confusion, disequilibrium, dizziness, focal weakness, headache(s) or paresthesias Psychiatric Psychiatric: Reports anxiety Vital Signs Vital Signs Vital Signs: 09/07/24 00:29 09/07/24 00:38 09/07/24 00:45 Temperature 97.9 F Temperature Source Oral Pulse Rate 98 98 87 Respiratory Rate 17 17 16 Blood Pressure 157/94 H 157/94 H 142/82 H Blood Pressure Mean 115 115 102 Pulse Ox 99 99 98 Oxygen Delivery Method Room Air Room Air Room Air 09/07/24 01:00 09/07/24 01:15 09/07/24 01:30 Temperature 98.2 F Temperature Source Pulse Rate 83 84 77 Respiratory Rate 16 16 12 Blood Pressure 151/87 H 150/76 H 150/76 H Blood Pressure Mean 108 100 100 Pulse Ox 97 97 98 Oxygen Delivery Method Room Air Room Air Weight Weight: 98.4 kg Body Mass Index (BMI) 32.0 Physical Exam Const alert, oriented x3 and no apparent distress Constitutional Narrative: Pleasant younger female, class I obesity, mildly anxious appearing but otherwise sitting back comfortably in bed, conversing normally, in no acute distress. General Appearance: cooperative and comfortable HEENT normocephalic, head/scalp atraumatic, hearing grossly normal bilaterally, nasal mucous membranes and turbinates normal and moist oral mucous membranes Eyes PERRL, EOMs intact bilaterally and conjunctivae normal Neck full ROM Chest inspection of chest normal Resp normal respiratory effort, normal air movement, no use of accessory muscles and clear to auscultation bilaterally Cardio regular rate, regular rhythm, no murmurs and peripheral pulses 2+ throughout GI normal to inspection, nondistended, normoactive bowel sounds, soft to palpation, non-tender and non-distended Back/Spine normal ROM Extremity normal to inspection, full ROM and no pedal edema Skin no rashes or lesions noted Neuro oriented x3, CN's II-XII intact bilaterally, moves all extremities and no focal motor deficits Speech: speech normal Motor Exam: strength 5/5 throughout Psych mental status grossly normal Mood & Affect: anxious Results Lab / Micro Data 09/07/24 00:35 09/07/24 00:35 Labs: Laboratory Results - last 24 hr 09/07/24 00:34: POC Glucose 97 09/07/24 00:35: WBC 7.9, RBC 4.41, Hgb 13.4, Hct 38.4, MCV 87.1, MCH 30.4, MCHC 34.9, RDW Std Deviation 38.7, RDW Coeff of Westley 12.1, Plt Count 175, MPV 12.0, Immature Gran % (Auto) 0.300, Neut % (Auto) 48.5, Lymph % (Auto) 40.5, [place] % (Auto) 7.7, Eos % (Auto) 2.4, Baso % (Auto) 0.6, Absolute Neuts (auto) 3.8, Absolute Lymphs (auto) 3.19, Nucleated RBC % 0, PT 13.7, INR 1.0, APTT 26.5, Sodium 141, Potassium 3.5, Chloride 105, Carbon Dioxide 23.2, Anion Gap 13, BUN 13, Creatinine 0.79, Estim Creat Clear Calc 120.54, Est GFR (MDRD) Non-Af 99, BUN/Creatinine Ratio 16.5, Glucose 102 H, Calcium 9.6 Imaging Radiology Impression Brain CT 09/07/24 00:45 IMPRESSION: No intracranial hemorrhage, mass effect or CT evidence of large vascular territory acute infarct. Results communicated verbally by phone by myself to Dr. Kern at 1:05 a.m. 09/07/2024 Reading Location: [facility] Chest X-Ray 09/07/24 00:45 IMPRESSION: Unremarkable examination of the chest. Reading Location: [place] [id number] Head/Neck CTA 09/07/24 00:45 IMPRESSION: No vessel cut off, flow significant stenosis, dissection or aneurysm identified as above. Reading Location: [facility] Assessment & Plan Assessment/Plan (1) Stroke-like symptoms: PLAN: Plan Patient is a 39-year-old female who presented to [facility] ED on with strokelike symptoms. 1. Strokelike symptoms ? Admit under observation status to PCU. Teleneurology consulted. Presented with left arm numbness and discomfort. NIHSS score of 1. CT brain and CTA head/neck unremarkable. Orders placed per stroke protocol order set. MRI brain ordered. Echo with bubble study ordered. Lipid panel, A1c and TSH ordered. Will start patient on baby aspirin and high intensity statin daily for now. 2. Anxiety/depression ? Per history. Has been on citalopram in the past but is not currently on any medications. Patient woke up from sleep feeling very panicked on the evening of admission and reports some generalized anxiety recently. Monitor and recommend close outpatient follow-up. 3. Seasonal allergies ? Continue home cetirizine. 4. Class I obesity ? BMI 32 on admit. Encouraged weight loss. DVT prophylaxis: SCDs CODE STATUS: Full code, verified Expected disposition: Home, 1 to 2 days Total clinical time spent by myself addressing the patient's medical issues, reviewing all the data, and collaborating with patient's care team: 55 minutes. Charges/Coding Visit Charges Inpatient E&M: 75890 Init Hosp L2
--- NOTE | 2024-09-07 01:54 | EDS_ITS ---
HPI History of Present Illness Chief Complaint: Stroke Alert Informant: patient Narrative Narrative: Patient is a 39-year-old female with no reported clinically significant past medical history. She reports for the past few weeks she has been having intermittent bouts of shortness of breath as well as dizziness. She describes the dizziness as more of a sense of motion and states it does typically occur with changes in position. She reports it will come on suddenly only last for a few seconds and then resolves. She reports there has been no new medications and there is been no recent trauma. She states she went and saw a family doctor secondary to the recurrent symptoms and with physical exam and workup there was no obvious cause for her symptoms. She states this evening she lied down and went to bed and awoke roughly an hour and a half prior to arrival and noted that she felt her heart was racing and that she was sweaty. She states with this she noticed that the left side of her body felt numb or tingling compared to the right and with this new sensation comes in for evaluation. [facility] Medical History (Updated 09/07/24 @ 02:[address] Darvin Kern, ) Abnormal Pap smear of cervix Depression Home Medications ?Medication ?Instructions ?Recorded ?Last Taken ?Type cetirizine 10 mg disintegrating 10 mg PO DAILY 1 Unknown History tablet (Zyrtec) multivitamin 1 tab PO DAILY 12/24/22 Unkn own History Allergy/AdvReac Type Severity Reaction Status Date / Time No Known Allergies Allergy Verified 09/07/24 00:29 Family History Mother Hypertension Father Cancer prostate Grandmother Cancer thyroid Heart disease Breast cancer Grandfather Cancer lung colon Heart disease Unknown Breast cancer, Onset Age: 27 Surgical History H/O LEEP Social History Smoking Status: Never smoker alcohol intake: current substance use type: does not use caffeine: No what type of physical activity do you participate in: none seatbelt use: always do you feel safe at home: Yes additional social history: [place] Patient works at [employer] ROS ROS ED Constitutional Constitutional ED: Denies chills or fever(s) Eyes Eyes: Denies blurry vision or change in vision ENT ENT ED: Denies ear pain, rhinorrhea or sore throat Cardiovascular Cardiovascular: Reports racing heartbeat; Denies chest pain Respiratory/Chest Respiratory/Chest: Reports dyspnea; Denies cough Gastrointestinal Gastrointestinal: Denies abdominal pain, diarrhea, nausea or vomiting Genitourinary Genitourinary ED: Denies dysuria Musculoskeletal Musculoskeletal: Denies myalgias Integumentary Denies rash Neurologic Neurologic: Reports paresthesias and weakness; Denies headache(s) Psychiatric Psychiatric: Reports depression Hematologic/Lymphatic Hematologic/Lymphatic: Denies easy bleeding or easy bruising EXAM Physical Exam Const Vital Signs: 09/07/24 00:29 09/07/24 00:38 09/07/24 00:45 Temperature 97.9 F Temperature Source Oral Pulse Rate 98 98 87 Respiratory Rate 17 17 16 Blood Pressure 157/94 H 157/94 H 142/82 H Blood Pressure Mean 115 115 102 Pulse Ox 99 99 98 Oxygen Delivery Method Room Air Room Air Room Air 09/07/24 01:00 09/07/24 01:15 09/07/24 01:30 Temperature 98.2 F Temperature Source Pulse Rate 83 84 77 Respiratory Rate 16 16 12 Blood Pressure 151/87 H 150/76 H 150/76 H Blood Pressure Mean 108 100 100 Pulse Ox 97 97 98 Oxygen Delivery Method Room Air Room Air 09/07/24 02:00 Temperature Temperature Source Pulse Rate 77 Respiratory Rate 18 Blood Pressure 137/83 H Blood Pressure Mean 101 Pulse Ox 99 Oxygen Delivery Method Room Air Positive well nourished and well developed General Appearance ED: well developed; Negative for pallor HEENT Reports moist mucous membranes HEENT Narrative: Normocephalic atraumatic No signs of infection noted in the posterior pharynx No tongue or lip swelling no oral lesions no airway edema or compromise Eyes PERRL and EOMs intact bilaterally Neck supple Neck Narrative: No nuchal rigidity or meningeal signs noted Resp normal respiratory effort and clear to auscultation bilaterally Resp Narrative: Breath sounds are clear to auscultation throughout No nasal flaring retractions tachypnea or accessory muscle use Cardio regular rhythm Rate: tachycardic and other Other Details: Slightly tachycardic rate with regular rhythm No murmurs rubs or gallops Radial and carotid pulses are equal and symmetric GI normal to inspection, nondistended, normoactive bowel sounds, non-tender, non- distended and no masses GI Narrative: No voluntary guarding or rigidity or pulsatile mass Auscultation: normoactive bowel sounds Palpation: soft Extremity normal to inspection Extremity Narrative: No asymmetric edema no pitting edema negative Homans' sign bilaterally Neuro oriented x3 Neuro Narrative: GCS of 15 Patient has an NIH stroke scale score of 2. She receives a score of 1 based on paresthesias reported along the left face arm and leg. She also received a scor e of 1 for mild weakness/drift of the left leg compared to the right No nystagmus noted No truncal ataxia No pronator drift No dysmetria Negative Hallpike Bethany exam Sensorium / Orientation: alert Psych Mood & Affect: anxious Skin no rashes or lesions noted and no wounds General Skin Exam: Negative for jaundice or pallor MDM MDM MDM Narrative Medical decision making narrative: Patient arrived to the ER hypertensive and mildly tachycardic but was visibly anxious. She reported waking from sleep with left-sided numbness and slight weakness. She states she felt perfectly normal when she went to bed which was roughly an hour and a half before symptoms started. Based on the unilateral paresthesias as well as her slight left leg weakness there was concern this was an acute CVA so a stroke alert was activated. The patient underwent a CT and CTA which showed no signs of hemorrhagic stroke brain mass or LVO. The patient was evaluated by [facility] neurology. They agree at this time that even though the patient is with in the window for thrombolysis that as her stroke scale score is so mild at a value of 2 it does not qualify for TNK and therefore it was not provided. However her anxiety has improved and she still complains of paresthesias of the left side compared to right and there is still faint weakness of the left leg compared to right. Secondary to this neurology recommends admission in our facility as there is no signs of acute bleed or LVO to complete the stroke workup. The plan of care was discussed with the hospitalist who was agreeable to it and will admit the patient for continued care History & Record Review Discussion w/independent historian: Patient Lab Data Attestation: I reviewed the patient's lab results. Labs: Laboratory Results - last 24 hr 09/07/24 09/07/24 00:34 00:35 WBC 7.9 RBC 4.41 Hgb 13.4 Hct 38.4 MCV 87.1 MCH 30.4 MCHC 34.9 RDW Std Deviation 38.7 RDW Coeff of [place]ley 12.1 Plt Count 175 MPV 12.0 Immature Gran % (Auto) 0.300 Neut % (Auto) 48.5 Lymph % (Auto) 40.5 Wallace % (Auto) 7.7 Eos % (Auto) 2.4 Baso % (Auto) 0.6 Absolute Neuts (auto) 3.8 Absolute Lymphs (auto) 3.19 Nucleated RBC % 0 PT 13.7 INR 1.0 APTT 26.5 Sodium 141 Potassium 3.5 Chloride 105 Carbon Dioxide 23.2 Anion Gap 13 BUN 13 Creatinine 0.79 Estim Creat Clear Calc 120.54 Est GFR (MDRD) Non-Af 99 BUN/Creatinine Ratio 16.5 Glucose 102 H Calcium 9.6 POC Glucose 97 Radiography Diagnostic Testing: Clinical Impression(s) from Imaging Studies Brain CT 09/07/24 00:45 IMPRESSION: No intracranial hemorrhage, mass effect or CT evidence of large vascular territory acute infarct. Results communicated verbally by phone by myself to Dr. Kern at 1:05 a.m. 09/07/2024 Reading Location: [facility] Chest X-Ray 09/07/24 00:45 IMPRESSION: Unremarkable examination of the chest. Reading Location: [place] [id number] Head/Neck CTA 09/07/24 00:45 IMPRESSION: No vessel cut off, flow significant stenosis, dissection or aneurysm identified as above. Reading Location: [facility] 1 view chest x-ray as interpreted by the emergency medicine physician reveals no acute infiltrate pneumothorax or pleural effusion Management Discussion w/another healthcare provider: Hospitalist, Scientific Research Associate and Radiologist Critical Care Time Critical Care Time: Yes Critical care time (excluding procedures): Discussing w/Patient &/or Family/Topographical Field Assistant, Discussing w/Consultants, Performing Direct Patient Care at Bedside and - (Critical care time of 31 minutes) Discharge Plan Dx/Rx/DC Orders Clinical Impression: Paresthesias, Stroke-like symptoms, Anxiety Disposition Disposition: Acute Care [facility]
--- NOTE | 2024-09-07 01:55 | MRI_ITS ---
PROCEDURE: BRAIN WITHOUT CONTRAST 09/07/2024 REASON FOR EXAM: CVA RULE OUT TECHNIQUE: Noncontrast brain MRI. Axial, coronal and sagittal FLAIR, T1 and T2 weighted images were obtained. Axial diffusion images with reconstructed ADC maps. Susceptibility weighted images were obtained. Gradient echo images were also obtained. COMPARISON: CT scan on 09/07/2024. FINDINGS: The ventricles and extra-axial spaces are normal for the patient's age. There are no areas of abnormal signal intensity in the brain parenchyma. No abnormality is identified in the basal ganglia and thalami. No abnormality is identified in the brainstem. Unremarkable cerebellum. There is no midline shift or brain herniation. There is no demonstrated extra-axial, intraparenchymal, or intraventricular hemorrhage. There are no abnormal intra-or extra-axial fluid collections. There are no areas of restricted diffusion to suggest acute ischemia. The cerebellopontine angles, internal auditory canals and the cisternal portions of the accoustico - facial nerves are unremarkable. Unremarkable exam of the skull. Normal soft tissue structures. The visualized paranasal sinuses and mastoid air cells are clear. The visualized portions of the orbits are unremarkable. MRI/Brain without Contrast IMPRESSION: Negative exam. No MRI evidence of an acute abnormality. No restricted diffusion to suggest acute ischemia. Reading Location: [facility]
--- NOTE | 2024-09-07 01:55 | ECHOD_ITS ---
Reason For Study Reason For Study: TIA/CVA Procedure This was a 2D Doppler, Color Flow transthoracic echocardiogram. Exam performed portable in patient room. Left Ventricle Normal LV size. The left ventricular ejection fraction is 65 %. No regional wall motion abnormalities noted. Right Ventricle Normal RV size. Normal systolic function. Atria Normal left atrium. Normal right atrium. Bubble contrast study is negative for PFO/ASD. Mitral Valve Normal mitral valve. Tricuspid Valve Normal tricuspid valve. Aortic Valve Trisinus/trileaflet aortic valve. Pulmonic Valve Normal pulmonic valve. Great Vessels Normal aortic root. The pulmonary artery is normal size. Inferior vena cava collapse with respiration. Pericardium/Pleural No pericardial effusion. Medication Performed a rapid injection of agitated mix of 9 cc saline and 1cc air to assess for atrial septal defect. MMode/2D Measurements & Calculations LVIDd: 4.9 cm IVSd: 1.2 cm Ao root diam: 2.9 cm LVIDs: 3.0 cm LVPWd: 0.99 cm RVDd: 4.1 cm FS: 37.4 % LAV(MOD-bp): 51.0 ml LVAd ap4: 28.7 cm2 SV(MOD-sp4): 51.8 ml LAV(MOD-bp) Indexed: 24.0 ml/m2 LVLd ap4: 8.6 cm SI(MOD-sp4): 24.4 ml/m2 LAV(MOD-sp2): 45.7 ml EDV(MOD-sp4): 81.0 ml LAV(MOD-sp4): 49.9 ml EDV(sp4-el): 81.8 ml LVAs ap4: 14.8 cm2 LVLs ap4: 6.7 cm ESV(MOD-sp4): 29.2 ml ESV(sp4-el): 27.6 ml EF(MOD-sp4): 64.0 % EF(sp4-el): 66.3 % SV(sp4-el): 54.2 ml LA A4 area: 18.4 cm2 LA dimension(2D): 4.0 cm RA A4 area: 15.5 cm2 TAPSE: 2.1 cm Time Measurements MV dec time: 0.17 sec Doppler Measurements & Calculations MV E max quirino: 97.2 cm/sec Lat Peak E' Quirino: 18.3 cm/sec Med Peak E' Quirino: 12.8 cm/sec MV A max quirino: 68.0 cm/sec E/E' lat: 5.3 E/E' med: 7.6 MV E/A: 1.4 MV V2 max: 113.2 cm/sec MV P1/2t max quirino: 113.2 cm/sec Ao V2 max: 120.3 cm/sec MV max P.1 mmHg MV P1/2t: 60.1 msec Ao max P.8 mmHg MV V2 mean: 66.0 cm/sec MV dec slope: 551.5 cm/sec2 MV mean P.0 mmHg MVA(P1/2t): 3.7 cm2 MV V2 VTI: 26.1 cm LV V1 max: 111.2 cm/sec PA V2 max: 106.6 cm/sec LV V1 max P.9 mmHg PA V2 mean: 74.5 cm/sec ECHO/Echo Complete Interpretation Summary Bubble contrast study is negative for PFO/ASD. Normal LV size. The left ventricular ejection fraction is 65 %. Structurally normal valves. Ordering Physician: Chris Black Performed By: Kai Sewell RCS
--- NOTE | 2024-09-07 05:29 | CPS ---
Patient stated she wears a home CPAP, patient declined wanting one to wear tonight.
[2024-09-07 05:43] LABS: Hemoglobin A1c 4.9 % (<=5.6)
--- NOTE | 2024-09-07 08:04 | PCM.PN.HOSP ---
Reason for Visit Reason for Visit: Diagnoses Unspecified symptoms and signs involving the nervous system (09/07/24) Subjective Subjective atient is a 39-year-old lady with history of depression with anxiety previously on SSRI taking of by her primary care physicians after almost 2 decades who presented with multiple complaints including pain involving the left eyeball, diaphoresis and numbness involving left upper extremity. Patient admitted to a monitored bed for workup of suspected CVA Objective Data Objective Data Vital Signs: Vital Signs Temp Pulse Resp BP Pulse Ox O2 Del Method 96.8 F L 60 17 137/85 H 98 Room Air 09/07/24 06:41 09/07/24 06:41 09/07/24 06:41 09/07/24 06:41 09/07/24 06:41 09/07/24 06:41 Oxygen Delivery Method Room Air Weight: 97.4 kg Body Mass Index (BMI) 31.7 Lab / Micro Data 09/07/24 00:35 09/07/24 00:35 Labs: Laboratory Results - last 24 hr 09/07/24 00:34: POC Glucose 97 09/07/24 00:35: WBC 7.9, RBC 4.41, Hgb 13.4, Hct 38.4, MCV 87.1, MCH 30.4, MCHC 34.9, RDW Std Deviation 38.7, RDW Coeff of [place]ley 12.1, Plt Count 175, MPV 12.0, Immature Gran % (Auto) 0.300, Neut % (Auto) 48.5, Lymph % (Auto) 40.5, [place] % (Auto) 7.7, Eos % (Auto) 2.4, Baso % (Auto) 0.6, Absolute Neuts (auto) 3.8, Absolute Lymphs (auto) 3.19, Nucleated RBC % 0, PT 13.7, INR 1.0, APTT 26.5, Sodium 141, Potassium 3.5, Chloride 105, Carbon Dioxide 23.2, Anion Gap 13, BUN 13, Creatinine 0.79, Estim Creat Clear Calc 120.54, Est GFR (MDRD) Non-Af 99, BUN/Creatinine Ratio 16.5, Glucose 102 H, Hemoglobin A1c 4.9, Calcium 9.6, TSH 2.700 Radiography Diagnostic Testing: Radiology Impression Brain CT 09/07/24 00:45 IMPRESSION: No intracranial hemorrhage, mass effect or CT evidence of large vascular territory acute infarct. Results communicated verbally by phone by myself to Dr. Kern at 1:05 a.m. 09/07/2024 Reading Location: [facility] Chest X-Ray 09/07/24 00:45 IMPRESSION: Unremarkable examination of the chest. Reading Location: [place] [id number] Head/Neck CTA 09/07/24 00:45 IMPRESSION: No vessel cut off, flow significant stenosis, dissection or aneurysm identified as above. Reading Location: [facility] Physical Exam Narrative GENERAL: cooperative HEENT: Atraumatic; normocephalic EYES; Anicteric, Normal Conjunctiva NECK; supple, normal thyroid, RESPIRATORY: Diminished to auscultation CARDIOVASCULAR: Regular S1 S2, GI: soft, normoactive bowel sounds, : No Renal angle tenderness; EXTREMITIES: No edema, no clubbing, MUSCULOSKELETAL: no muscle wasting NEURO: Awake; no lateralizing signs. SKIN: No Rash PSYCH; Flat affect Assessment & Plan Assessment/Plan (1) Stroke-like symptoms: PLAN: Plan Patient is a 39-year-old lady with history of depression with anxiety previously on SSRI taking of by her primary care physicians after almost 2 decades who presented with multiple complaints including pain involving the left eyeball, diaphoresis and numbness involving left upper extremity. Patient admitted to a monitored bed for workup of suspected CVA 1. 1. Strokelike symptoms ? Patient admitted to a monitored bed every 4 neurochecks. As part of evaluation patient underwent CTA and MRI both of which came back unremarkable 2D echo with bubble study ordered and [facility] teleneuro consulted 2. Severe depression with anxiety ? Patient was previously on citalopram taken off by her PCP placed on hydroxyzine as needed patient instructed to follow-up with primary care physician on discharge for resumption of therapy or possible referral to psychiatry 3. Class I obesity with BMI of 32 ? Weight loss advised 4. Seasonal allergies ? On cetirizine continue
[2024-09-07] MEDS: Aspirin 81 MG TAB.CHEW PO (08:33)
[2024-09-07 10:00] LABS: Cholesterol 139 mg/dL (<=200); High Density Lipoprotein 47 mg/dL; Low Density Lipoprotein Calc. 86 mg/dL; Triglycerides 27 mg/dL; Very Low Density Lipoprotein 5 mg/dL (5-40); cholesterol:hdl ratio screen 2.94
--- NOTE | 2024-09-07 15:01 | PCM.DC.SUM ---
Providers Date of Admission: 09/07/24 Date of Discharge: 09/07/24 Primary Care Physician: Dr. Federico Carias MD Consultations 09/07/24 03:24 Consult: Tele-Neurology Routine Consulting Provider: [facility] Reason for Consult: Acute Ischemic Stroke/TIA EMERGENT Consult: No Notified: No Date Notified: 09/07/24 Time Notified: 01:52 Nursing Unit Staff Notify [facility] of Tele-Neurology Consult: Yes 09/07/24 04:32 Consult: Tele-Neurology Routine Consulting Provider: [facility] Reason for Consult: stroke like symptoms EMERGENT Consult: No Notified: Yes Date Notified: 09/07/24 Time Notified: 04:32 Method of Notification: Answering Service Method of Consult:: Telemedicine Nursing Unit Staff Notify [facility] of Tele-Neurology Consult: Yes Reason For Visit: STROKELIKE SYMPTOMS Diagnosis Discharge Diagnosis (1) Anxiety: Status: Acute Code(s): F41.9 - Anxiety disorder, unspecified Plan Patient is a 39-year-old lady with history of depression with anxiety previously on SSRI taking of by her primary care physicians after almost 2 decades who presented with multiple complaints including pain involving the left eyeball, diaphoresis and numbness involving left upper extremity. Patient admitted to a monitored bed for workup of suspected CVA 1. Suspected anxiety ? Patient presented with strokelike symptoms. Patient admitted to a monitored bed every 4 neurochecks. As part of evaluation patient underwent CTA and MRI both of which came back unremarkable 2D echo with bubble study ordered and [facility] teleneuro consulted ? Case discussed with [facility] plan is for patient to undergo outpatient sleep study as well as vestibular therapy has helped 2. Severe depression with anxiety ? Patient was previously on citalopram taken off by her PCP placed on hydroxyzine as needed patient instructed to follow-up with primary care physician on discharge for resumption of therapy or possible referral to psychiatry 3. Class I obesity with BMI of 32 ? Weight loss advised 4. Seasonal allergies ? On cetirizine continue Medications at Discharge Home Medications ascorbic acid (vitamin C) 1,000 mg capsule 1 g PO DAILY 09/07/24 fexofenadine 180 mg tablet (Lita Allergy) 180 mg PO Q24H 09/07/24 vitamin B complex 1 cap PO DAILY 09/07/24 vitamin D3 25 mcg (1,000 unit)-vit K2 90 mcg disintegrating tablet (D3 Plus K2 Dots) 1 tab PO DAILY supplement 09/07/24 Hospital Course Summary of Care Provided Minutes Spent on Discharge: 35 Physical Exam Narrative GENERAL: cooperative HEENT: Atraumatic; normocephalic EYES; Anicteric, Normal Conjunctiva NECK; supple, normal thyroid, RESPIRATORY: Diminished to auscultation CARDIOVASCULAR: Regular S1 S2, GI: soft, normoactive bowel sounds, : No Renal angle tenderness; EXTREMITIES: No edema, no clubbing, MUSCULOSKELETAL: no muscle wasting NEURO: Awake; no lateralizing signs. SKIN: No Rash PSYCH; Flat affect Weight / BMI Weight Weight: 97.4 kg Body Mass Index (BMI) 31.7 ABG / Lab / Microbiology Data 09/07/24 00:35 09/07/24 00:35 Laboratory: Laboratory Results - last 24 hr 09/07/24 00:34: POC Glucose 97 09/07/24 00:35: WBC 7.9, RBC 4.41, Hgb 13.4, Hct 38.4, MCV 87.1, MCH 30.4, MCHC 34.9, RDW Std Deviation 38.7, RDW Coeff of [place] 12.1, Plt Count 175, MPV 12.0, Immature Gran % (Auto) 0.300, Neut % (Auto) 48.5, Lymph % (Auto) 40.5, [place] % (Auto) 7.7, Eos % (Auto) 2.4, Baso % (Auto) 0.6, Absolute Neuts (auto) 3.8, Absolute Lymphs (auto) 3.19, Nucleated RBC % 0, PT 13.7, INR 1.0, APTT 26.5, Sodium 141, Potassium 3.5, Chloride 105, Carbon Dioxide 23.2, Anion Gap 13, BUN 13, Creatinine 0.79, Estim Creat Clear Calc 120.54, Est GFR (MDRD) Non-Af 99, BUN/Creatinine Ratio 16.5, Glucose 102 H, Hemoglobin A1c 4.9, Calcium 9.6, TSH 2.700 09/07/24 07:05: Triglycerides 27, Cholesterol 139, LDL Cholesterol, Calc 86, VLDL Cholesterol 5, HDL Cholesterol 47, Cholesterol/HDL Ratio 2.94 Radiography Diagnostic Testing: Radiology Impression Brain CT 09/07/24 00:45 IMPRESSION: No intracranial hemorrhage, mass effect or CT evidence of large vascular territory acute infarct. Results communicated verbally by phone by myself to Dr. Kern at 1:05 a.m. 09/07/2024 Reading Location: [facility] Chest X-Ray 09/07/24 00:45 IMPRESSION: Unremarkable examination of the chest. Reading Location: [place] [id number] Head/Neck CTA 09/07/24 00:45 IMPRESSION: No vessel cut off, flow significant stenosis, dissection or aneurysm identified as above. Reading Location: [facility] Brain MRI 09/07/24 01:55 IMPRESSION: Negative exam. No MRI evidence of an acute abnormality. No restricted diffusion to suggest acute ischemia. Reading Location: [place] [address] Echocardiogram 09/07/24 01:55 Interpretation Summary Bubble contrast study is negative for PFO/ASD. Normal LV size. The left ventricular ejection fraction is 65 %. Structurally normal valves. Ordering Physician: Chris Black Performed By: Kai Sewell RCS D/C Instructions Discharge Diet: No restrictions Discharge Activity: Return to Normal Activity Call your doctor if you observe: Fever of 101 or Higher, Shortness of breath, Fainting spells and Chest pain DC O2, CPAP, BIPAP Needs Home O2 Discharge instructions: No Meaningful Use Info Meaningful Use Meaningful Use Diagnoses (Choose all that apply): None applicable Ischemic Stroke Statin Dosing Therapy Reference: STATIN DOSE THERAPY REFERENCE: * Patients > 75 years receive moderate or high dose statin therapy. * Patients 75 years or YOUNGER should receive HIGH intensity statin dose unless contraindicated. You will be required to document reason for non-treatment if statin daily dose does not meet guidelines. HIGH DOSE STATIN THERAPY DAILY Atorvastatin > than or = to 40 mg Rosuvastatin > than or = to 20 mg Amlodipine + Atorvastatin > than or = to 2.5/40 mg Ezetimibe + Simvastatin 10/80 mg Simvastatin 80mg Discharge Plan Admission Admit Date/Time: 09/07/24 01:51 Attending Provider: Vishal Plascencia Primary Care Provider: Federico Carias Consulting Providers: Yossi Brooks; Abrahan José; Maria Esther Javier; Elisha Warren; Linda Tadeo; Shiraz Gastelum; Luanne Yen; Danny Moore; Anand Ventura; Jack Fowler; Margo Mcdonald; Don Whiteside; Mana Ortega; Breanna Harden; Emily Mcelroy; Doyle Beasley; Dmitry Samuel; Samir Saxena; Flora Meyer; Ricci Painter; Chris Black Discharge Orders/Prescriptions Prescriptions: Continued fexofenadine [Lita Allergy] 180 mg tablet 180 mg PO Q24H D3 Plus K2 Dots 25 mcg (1,000 unit)-90 mcg tablet,disintegrating 1 tab PO DAILY ascorbic acid (vitamin C) 1,000 mg capsule 1 g PO DAILY vitamin B complex Capsule 1 cap PO DAILY Other Ambulatory Orders: Physical Therapy Evaluation (Routine) Location: None Selected Ordered By: Dr. Vishal Plascencia Sleep Disorder Breathing Eval (Routine) Facility: [facility] - Location: Sleep Lab Ordered By: Dr. Vishal Plascencia Referrals / Follow Up: Federico Carias MD [Primary Care Provider] - Within 1 Week Disposition Disposition (needs filled in before D/C Order can be placed): Home, Self Care Charges/Coding Visit Charges Inpatient E&M: 22511 Disch Hosp >30min
--- NOTE | 2024-09-07 15:31 | CASEMGMT ---
SW did not complete a PHQ 9 as patient did not have a Stroke or TIA. Aurea HAMMOND
--- NOTE | 2024-09-07 15:31 | CASEMGMT ---
Patient has order for discharge. Script received by hospitalist for vestibular therapy. RN CM in to discuss needs at discharge. Patient states she would like to schedule vestibular therapy on her own, script provided in chart. Patient had no further questions or concerns.
--- NOTE | 2024-09-08 00:12 | STROKE.CONS ---
Assessment and Plan: Stroke Assessment/Plan CONCEPCION ALFRED is a 39 F with a history of severe anxiety who presents for evaluation of vertigo x weeks and paraesthesias. Neurological examination shows NIH 0. Neuroimaging shows no acute findings. CTA with no stenosis. NO concern for vascular cause if her vertigo. No further stroke workup ENT referral HPI Consult Data Date of Consult: 09/08/24 HPI Narrative HPI Narrative: CONCEPCION ALFRED, is a 39 F who presents [facility] Medical History (Updated 09/07/24 @ 02:[address] Darvin Kern, DO) Abnormal Pap smear of cervix Depression Home Medications ?Medication ?Instructions ?Recorded ?Last Taken ?Type ascorbic acid (vitamin C) 1,000 mg 1 g PO DAILY vitamin 09/07/24 Unknown History capsule fexofenadine 180 mg tablet 180 mg PO Q24H allergies 09/07/24 Unknown History (Lita Allergy) vitamin B complex 1 cap PO DAILY vitamin 09/07/24 Unknown History vitamin D3 25 mcg (1,000 unit)-vit 1 tab PO DAILY supplement 09/07/24 09/06/24 History K2 90 mcg disintegrating tablet (D3 Plus K2 Dots) Allergy/AdvReac Type Severity Reaction Status Date / Time No Known Allergies Allergy Verified 09/07/24 00:29 Family History Mother Hypertension Father Cancer prostate Grandmother Cancer thyroid Heart disease Breast cancer Grandfather Cancer lung colon Heart disease Unknown Breast cancer, Onset Age: 27 Surgical History H/O LEEP Social History Smoking Status: Never smoker alcohol intake: current substance use type: does not use caffeine: No what type of physical activity do you participate in: none seatbelt use: always do you feel safe at home: Yes additional social history: [employer] Patient works at [email or web address] Vital Signs Vital Signs Vital Signs: 09/07/24 00:29 09/07/24 00:38 09/07/24 00:45 Temperature 97.9 F Temperature Source Oral Pulse Rate 98 98 87 Respiratory Rate 17 17 16 Respiratory Effort Respiratory Depth Respiratory Pattern Blood Pressure 157/94 H 157/94 H 142/82 H Blood Pressure Mean 115 115 102 Blood Pressure Source Blood Pressure Position Blood Pressure Location Pulse Ox 99 99 98 Oxygen Delivery Method Room Air Room Air Room Air 09/07/24 01:00 09/07/24 01:15 09/07/24 01:30 Temperature 98.2 F Temperature Source Pulse Rate 83 84 77 Respiratory Rate 16 16 12 Respiratory Effort Respiratory Depth Respiratory Pattern Blood Pressure 151/87 H 150/76 H 150/76 H Blood Pressure Mean 108 100 100 Blood Pressure Source Blood Pressure Position Blood Pressure Location Pulse Ox 97 97 98 Oxygen Delivery Method Room Air Room Air 09/07/24 02:00 09/07/24 02:30 09/07/24 02:45 Temperature Temperature Source Pulse Rate 77 72 73 Respiratory Rate 18 14 17 Respiratory Effort Respiratory Depth Respiratory Pattern Blood Pressure 137/83 H 124/79 H 131/75 H Blood Pressure Mean 101 92 91 Blood Pressure Source Blood Pressure Position Blood Pressure Location Pulse Ox 99 97 97 Oxygen Delivery Method Room Air Room Air Room Air 09/07/24 03:00 09/07/24 03:35 09/07/24 05:20 Temperature 96.9 F L Temperature Source Temporal Pulse Rate 70 66 Respiratory Rate 18 18 Respiratory Effort Respiratory Depth Respiratory Pattern Blood Pressure 130/70 H 159/94 H Blood Pressure Mean 90 115 Blood Pressure Source Monitor Blood Pressure Position Semi-Fowlers Blood Pressure Location Right Forearm Pulse Ox 98 100 99 Oxygen Delivery Method Room Air Room Air Room Air 09/07/24 06:41 09/07/24 07:45 09/07/24 08:15 Temperature 96.8 F L 98.1 F Temperature Source Temporal Temporal Pulse Rate 60 64 Respiratory Rate 17 16 Respiratory Effort Normal Non-Labored Respiratory Depth Normal Respiratory Pattern Normal Blood Pressure 137/85 H 135/98 H Blood Pressure Mean 102 110 Blood Pressure Source Monitor Monitor Blood Pressure Position Semi-Fowlers Semi-Fowlers Blood Pressure Location Right Forearm Right Forearm Pulse Ox 98 100 Oxygen Delivery Method Room Air Room Air Room Air 09/07/24 08:30 09/07/24 14:00 09/07/24 14:00 Temperature 98.1 F Temperature Source Oral Pulse Rate 74 Respiratory Rate 16 Respiratory Effort Normal Non-Labored Respiratory Depth Normal Respiratory Pattern Normal Blood Pressure 134/75 H Blood Pressure Mean 94 Blood Pressure Source Monitor Blood Pressure Position Semi-Fowlers Blood Pressure Location Right Arm Pulse Ox 98 98 Oxygen Delivery Method Room Air Room Air Room Air Weight Weight: 97.4 kg Body Mass Index (BMI) 31.7 EEG Results Procedure Details EEG Procedure Details: CONCEPCION ALFRED is a 39 year old F with a past medical history of , who presents for evaluation of Electroencephalogram on DATE at TIME Lab / Micro Data 09/07/24 00:35 09/07/24 00:35 Labs: Laboratory Results - last 24 hr 09/07/24 00:34: POC Glucose 97 09/07/24 00:35: WBC 7.9, RBC 4.41, Hgb 13.4, Hct 38.4, MCV 87.1, MCH 30.4, MCHC 34.9, RDW Std Deviation 38.7, RDW Coeff of [place] 12.1, Plt Count 175, MPV 12.0, Immature Gran % (Auto) 0.300, Neut % (Auto) 48.5, Lymph % (Auto) 40.5, [place] % (Auto) 7.7, Eos % (Auto) 2.4, Baso % (Auto) 0.6, Absolute Neuts (auto) 3.8, Absolute Lymphs (auto) 3.19, Nucleated RBC % 0, PT 13.7, INR 1.0, APTT 26.5, Sodium 141, Potassium 3.5, Chloride 105, Carbon Dioxide 23.2, Anion Gap 13, BUN 13, Creatinine 0.79, Estim Creat Clear Calc 120.54, Est GFR (MDRD) Non-Af 99, BUN/Creatinine Ratio 16.5, Glucose 102 H, Hemoglobin A1c 4.9, Calcium 9.6, TSH 2.700 09/07/24 07:05: Triglycerides 27, Cholesterol 139, LDL Cholesterol, Calc 86, VLDL Cholesterol 5, HDL Cholesterol 47, Cholesterol/HDL Ratio 2.94 Imaging Radiology Impression Brain CT 09/07/24 00:45 IMPRESSION: No intracranial hemorrhage, mass effect or CT evidence of large vascular territory acute infarct. Results communicated verbally by phone by myself to Dr. Kern at 1:05 a.m. 09/07/2024 Reading Location: [facility] Chest X-Ray 09/07/24 00:45 IMPRESSION: Unremarkable examination of the chest. [facility] 09/07/24 00:45 IMPRESSION: No vessel cut off, flow significant stenosis, dissection or aneurysm identified as above. Reading Location: [id number] Brain MRI 09/07/24 01:55 IMPRESSION: Negative exam. No MRI evidence of an acute abnormality. No restricted diffusion to suggest acute ischemia. [facility] Echocardiogram 09/07/24 01:55 Interpretation Summary Bubble contrast study is negative for PFO/ASD. Normal LV size. The left ventricular ejection fraction is 65 %. Structurally normal valves. Ordering Physician: Chris Black Performed By: Kai Sewell RCS S NIHSS Nursing Documentation NIHSS Nursing Documentation: NIHSS: Ischemic Stroke/TIA Start: 09/07/24 03:24 Text: For PCU Patients: NIH and Neuro Check every 4 Status: Complete hours, PRN and with change in RN caregiver. Freq: [id number] Protocol: Activity Type Activity Date Activity User E-sign Co-sign Detail Recorded Client Recorded Date Recorded By Document 09/07/24 08:15 desktop 09/07/24 08:22 09/07/24 08:15 NIH Stroke Scale [NIHSS] A score of 0 is normal or asymptomatic . Total possible score is 42. Inpatient: RN or Physician to activate a stroke alert for onset of new stroke symptoms or with NIHSS increase >/= 3 points. Following change in neurological status, NIHSS will be performed per physician order or more frequently PRN. -1a. Level of Consciousness 0 - Alert; keenly responsive -1b. LOC Questions 0 - Answers BOTH questions correctly -1c. LOC Commands 0 - Performs BOTH tasks correctly -2. Best Gaze 1 - Normal -3. Visual 0 - No visual loss -4. Facial Palsy 0 - Normal symmetrical movements -5a. Left Arm 0 - No drift; arm holds 90 ( or 45) degrees for full 10 seconds -5b. Right Arm 0 - No drift; arm holds 90 ( or 45) degrees for full 10 seconds -6a. Left Leg 0 - No drift; leg holds 30- degree position for full 5 seconds -6b. Right Leg 0 - No drift; leg holds 30- degree position for full 5 seconds -7. Limb Ataxia 0 - Absent -8. Sensory 1 - Mild-to- moderate sensory loss; -9. Best Language 0 - No aphasia; normal -10. Dysarthria 0 - Normal -11. Extinction and Inattention 0 - No abnormality -Total 1 Query Text:A score of 0 is normal or asymptomatic. Total possible score is 42 . ED: Notify Physician for NIHSS increase by > / = 3 points. Inpatient: RN or Physician to activate a stroke alert for NIHSS increase of > / = 3 points. Coma Scale [Assess] -Eye Opening Spontaneous -Motor Obeys Commands -Verbal Oriented [Total] -Coma Scale Total 15
== END 2024-09-07 17:03 | disposition home or self-care (01) ==
LOC: ED 01:55 → PCU 02:59
PROVIDERS: Admitting Provider Hospitalist; Emergency Provider Emergency Medicine; PCP Family Medicine; Visit Provider Internal Medicine
DX: F41.9 Anxiety disorder, unspecified (principal); F32.A Depression, unspecified; R42 Dizziness and giddiness; R06.02 Shortness of breath; R00.0 Tachycardia, unspecified; R53.1 Weakness; R20.2 Paresthesia of skin; J30.2 Other seasonal allergic rhinitis; E66.811 Obesity, class 1; Z68.32 Body mass index [BMI] 32.0-32.9, adult; Z79.899 Other long term (current) drug therapy
CPT/HCPCS: 36415; 70450; 70496; 70498; 70551; 71045; 80048; 80061; 82962; 83036; 84443; 85025; 85610; 85730; 93005; 93306; 94762; 97802; 99221; 99285; Q9957; Q9967; A4216; G0378

== ENCOUNTER → 2024-09-27 | Outpatient (CLI) | payer OTHER, SELFPAY ==
[2024-09-27 19:20] LABS: Vitamin B12 657 pg/mL (180-914)
== END | disposition home or self-care (01) ==
LOC: MFPLAB 16:06
PROVIDERS: PCP Family Medicine; Referring Provider Family Medicine; Visit Provider Family Medicine
DX: E01.0 Iodine-deficiency related diffuse (endemic) goiter (principal)
CPT/HCPCS: 36415; 82607; 84432; 84439; 84443; 84445; 84482; 86376; 86800

== ENCOUNTER → 2024-10-19 | Outpatient (CLI) | payer OTHER, SELFPAY ==
[2024-10-24 15:08] LABS: Beef <0.10 kU/L (Class 0); Chocolate <0.10 kU/L (Class 0); Codfish <0.10 kU/L (Class 0); Egg, Whole <0.10 kU/L (Class 0); Milk (Cow) <0.10 kU/L (Class 0); Mussels <0.10 kU/L (Class 0); Pork <0.10 kU/L (Class 0); Salmon <0.10 kU/L (Class 0); Shrimp <0.10 kU/L (Class 0); Soybean <0.10 kU/L (Class 0); Tuna <0.10 kU/L (Class 0); Wheat 0.12 kU/L (Class 0/I)
== END | disposition home or self-care (01) ==
LOC: MFPLAB 16:37
PROVIDERS: PCP Family Medicine; Referring Provider Family Medicine; Visit Provider Family Medicine
DX: Z91.018 Allergy to other foods (principal)
CPT/HCPCS: 36415; 86003; 86005

== ENCOUNTER → 2025-01-19 | Outpatient (CLI) | payer OTHER, SELFPAY ==
[2025-01-19 11:12] LABS: Ferritin 147 ng/mL (22-378); Iron 125 ug/dL (50-170); Vitamin B12 691 pg/mL (180-914)
[2025-01-19 11:48] LABS: FOLATES,SERUM (FOLIC ACID) 8.89 ng/mL (4.60-34.80)
[2025-01-19 12:02] LABS: Cholesterol 131 mg/dL (<=200); Low Density Lipoprotein Calc. 76 mg/dL; Triglycerides 36 mg/dL; Very Low Density Lipoprotein 7 mg/dL (5-40); cholesterol:hdl ratio screen 2.73
== END | disposition home or self-care (01) ==
LOC: MTLAB 08:18
PROVIDERS: PCP Internal Medicine; Referring Provider Internal Medicine; Visit Provider Internal Medicine
DX: L65.9 Nonscarring hair loss, unspecified (principal); Z13.220 Encounter for screening for lipoid disorders
CPT/HCPCS: 36415; 80061; 82607; 82728; 82746; 83540; 84439; 84443

== ENCOUNTER 2025-04-17 15:30 | Outpatient (RCR) | payer OTHER, SELFPAY ==
--- NOTE | 2024-10-27 17:22 | HP.PTEVAL ---
Patient's Visit Information Visit Information Visit Information: SHEBA ALFRED is a 39 year old F referred to Physical Therapy by Dr. Tyra Caba MD with a diagnosis of High tone dysfunction pelvic floor. Date of Evaluation: 10/27/24 Physical Therapist: Ashley Collado Visit Plan Frequency: 1-2x /Week Duration: 3 Months Plan: Will continue 1-2 x week depending on her schedule for 30-60 minute sessions. Will focus on low back, tailbone treatment initially for first 2-3 visits and then evaluate pelvic floor. Anticipating pelvic floor tightness. Will focus on relaxation, down-training and manual therapy. Any improvement in her tailbone pain with press ups? Right upslip and right lumbar dysfunction. Subjective Subjective: She started some weakness in her pelvic floor about a year ago. She wasn't incontinent but she started having constipation. She is still straining and occasionally she will have pain after a bowel movement. In May she had her first real episode where she was having a lot of pain after urination. She has to really think about it to start her stream. She has a hesitant stream and intermittent stream of urine. She tries not to Increase in urinary frequency. Some nights she goes 2-4 x a night. Then there are nights where is isn't as bad. During the day, she urinates once every 2 hours. She started having pain with intercourse. Left side is painful. Deep pain with penetration. This started in May. Her main problem is tailbone pain at least since last fall (constant with sitting 8/10). She remembers being at her kids basketball practice and sitting on the floor and she noticed it. Pain definitely hurts with sitting but not as much with standing. She feels tightness in her low back. Not worse on one side. Low back pain 2-3/10 Her job before this she was in her car a lot. She created a donut with a blanket. 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 She was really stressed out in her old job. 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 She has sleep apnea. She wears a mask. Her biggest goal is the tailbone pain or urinary frequency at night especially, intercourse pain. Mild stress incontinence but nothing significant. Pain Tailbone: Pain Intensity (Out of 10): 7 Pain Intensity Range: 3 low back: Pain Intensity (Out of 10): 3 Objective Objective: Right upslip Lumbar range of motion: Flexion increased low back pain , tailbone pain Extension increased low back pain Sidebending left - right lumbar pain Sidebending right - tailbone shooting pain Rotation left - left lumbar pain Rotation right - right lumbar pain Good LE strength Negative Slump test Right upslip Right rotation L2-L5 , moderate right lumbar tightness and tenderness in piriformis Prone press ups good range of motion but some stiffness end range Negative supine SLR test Negative Fabere or glenis Did not complete internal exam as she is on her period POPDI-6 13, CRAD-8 14, PARUL-6 17 Goals Goal 1:: Sheba will be able to sleep thru the night without being awakened by the need to urinate to allow for more restful sleep. Goal Time Frame: 8-12 Weeks Goal 2:: Sheba will be on a more normal voiding schedule of 5-7 times a day to allow for less disruption during day to day activities. Goal Time Frame: 8-12 Weeks Goal 3:: Sheba will be able to sit for up to 2 hours a time to watch a movie or do a road trip without tailbone, coccyx pain during or after. Goal Time Frame: 6-8 Weeks Goal 4:: Sheba will be able to tolerate a gynecological exam using a medium sized speculum without vaginal pain during or after. Goal Time Frame: 6-8 Weeks Goal 5:: Sheba will be able to cough or sneeze without leaking. Goal Time Frame: 8-12 Weeks Goal 6:: Sheba will not experience any difficulty with urination or pain with micturition. Goal Time Frame: 6-8 Weeks Rehabilitation Potential Physical Therapy Diagnosis: Pelvic and perineal pain, Coccygodynia, Deep dyspareunia, Frequency of micturition , pain with urination and hesitant urine stream, constipation Rehabilitation Potential: Excellent Anticipated Interventions Patient/Client Instruction: Educate patient on: Condition and Plan of Care For the Purpose of:: To decrease pain, To improve muscle performance and motor function, To improve health and function, To improve self management and To improve tolerance to ADL's Therapeutic Exercise to Include: Strength training, Postural training, Neuromotor development, Relaxation training, Dynamic Lumbar Stabilization and Ivette Exercises For the Purpose of:: To decrease pain, To improve muscle performance and motor function, To improve health and function and To improve self management Manual Therapy Techniques to Include: Trigger point massage, Mobilization and Soft tissue mobilization For the Purpose of:: To decrease pain, To improve muscle performance and motor function, To improve health and function and To improve self management Ultrasound (thermal/non thermal): Yes Pelvic traction prone: Yes For the Purpose of:: To decrease pain, To improve muscle performance and motor function, To improve health and function and To improve self management Text: Thank you for the opportunity to evaluate your patient. For Medicare and Medicare HMO plans, please review the plan of care and approve it. It will need to be FAXED BACK to us at [phone] for Medicare purposes. For Medicare only, by signing this I certify the plan of care. Please let me know if there are questions or concerns regarding this plan of care. Physician Signature: Date:
== END 2025-04-17 19:00 | disposition home or self-care (01) ==
LOC: PT 15:30
PROVIDERS: PCP Family Medicine; Referring Provider Urology; Visit Provider Urology
DX: N94.89 Other specified conditions associated with female genital organs and menstrual cycle (principal)
CPT/HCPCS: 97012; 97112; 97140; 97162; 97530